=== PATIENT | male | born 1965 | race Caucasian/White ===

== ENCOUNTER 2021-05-27 10:24 | Inpatient (IN) | payer BC, SELFPAY ==
[~2021-05-27] VITALS: Ht 188 cm; Wt 119.7 kg
[2021-05-27 10:30] VITALS: BP 122/67
--- NOTE | 2021-05-27 11:03 | NUR ---
PT W/C ASSISTED TO BED 2
[2021-05-27] MEDS ORDERED: NACL 0.9% 1,000 ML IV ONE (11:05)
--- NOTE | 2021-05-27 11:05 | NUR ---
55 Y/O MALE BIB SELF WITH C/O CHILLS, BODY ACHES AND DIARRHEA SINCE LAST TUESDAY. PATIENT STATES HE WAS SEEN AT URGENT CARE YESTERDAY FOR SAME SYMPTOMS, WAS COVID TESTED BUT HAS NOT RECEIVED RESULTS. DENIES FEVER, CP, SOB. PT STATES 7/10 PAIN. WITH NAUSEA, VOMITING, ABD PAIN RADIATING LOWER BACK. MEDHX: HTN ALLERGIES: DENIES
--- NOTE | 2021-05-27 11:11 | NUR ---
PER ERMD 12 LEAD WAS DONE ON PT AND CAME BACK NSR AT 85 HR.
--- NOTE | 2021-05-27 11:12 | NUR ---
LAB AT BEDSIDE
--- NOTE | 2021-05-27 11:25 | NUR ---
XRAY AT BEDSIDE
--- NOTE | 2021-05-27 11:25 | NUR ---
SWABS COLLECTED AND HANDED TO SANDRA KIMBLE
[2021-05-27 11:35] LABS: BASOPHILS % (AUTO) 0.2 % (0.0-2.0); HEMATOCRIT 39.2 % (36-52); HEMOGLOBIN 13.4 g/dL (12.0-18.0); LYMPHOCYTES # (AUTO) 0.7 K/uL (2.0-11.5); LYMPHOCYTES % (AUTO) 12.1 % (20.5-51.1); MEAN CORPUSCULAR HEMOGLOBIN 30 pg (27-31); MEAN CORPUSCULAR HGB CONC 34 g/dL (33-37); MEAN CORPUSCULAR VOLUME 88.9 fL (80-94); MONOCYTES # (AUTO) 0.2 K/uL (0.8-1.0); MONOCYTES % (AUTO) 2.9 % (1.7-9.3); NEUTROPHILS % (AUTO) 84.8 % (42.2-75.2); PLATELET COUNT (AUTO) 180 K/uL (140-450); RED BLOOD CELL COUNT(AUTO) 4.41 MIL/uL (4.20-6.10); RED CELL DISTRIBUTION WIDTH 13.9 % (11.6-13.7); WHITE BLOOD COUNT (AUTO) 5.9 K/uL (4.8-10.8)
[2021-05-27 11:50] LABS: C-REACTIVE PROTEIN QUANT 11.7 mg/dL (0.0-0.9)
[2021-05-27 11:52] LABS: ALBUMIN 3.8 g/dL (3.4-5.0); ANION GAP 16.1 (8-16); CARBON DIOXIDE 23.6 mmol/L (21-32); CREATININE 1.8 mg/dL (0.6-1.3); POTASSIUM 3.7 mmol/L (3.5-5.1); TOTAL BILIRUBIN 0.6 mg/dL (0.0-1.0)
[2021-05-27 11:53] LABS: PROTHROMBIN TIME 9.6 secs (10.8-13.4)
[2021-05-27 12:01] LABS: RSV NEGATIVE (NEGATIVE)
--- NOTE | 2021-05-27 12:06 | NUR ---
PT TAKEN TO CT SCAN VIA AGUILAR
--- NOTE | 2021-05-27 12:18 | NUR ---
PT RETURNED FROM CT SCAN
[2021-05-27 12:19] LABS: CKMB RELATIVE INDEX 0.4 (0.0-2.5); CREATINE KINASE MB 1.4 ng/mL (0-3.6)
[2021-05-27 12:33] LABS: APPEARANCE,URINE CLEAR (CLEAR); BILIRUBIN,URINE NEGATIVE (NEGATIVE); BLOOD, URINE NEGATIVE (NEGATIVE); COLOR,URINE AMBER (YELLOW); LEUKOCYTE ESTERASE ,URINE NEGATIVE (NEGATIVE); NITRITE, URINE NEGATIVE (NEGATIVE); UGLUCOSE NEGATIVE (NEGATIVE)
[2021-05-27] MEDS ORDERED: LISI2.5T12 PO (12:38)
[2021-05-27] MEDS ORDERED: HYDR12.51 PO (12:38)
[2021-05-27] MEDS ORDERED: CELE100C PO (12:38)
[2021-05-27] MEDS ORDERED: OMEP20TC10 PO (12:38)
[2021-05-27] MEDS ORDERED: TURM500C7 PO (12:38)
[2021-05-27] MEDS ORDERED: GARL1TAB PO (12:38)
[2021-05-27] MEDS ORDERED: DEXAMETHASONE 10 MG/ML VIAL IVP ONE (12:55)
[2021-05-27] MEDS ORDERED: AZITHROMYCIN 500 MG in DEXTROSE 5% 250 ML IV ONE (12:55)
[2021-05-27] MEDS ORDERED: AZITHROMYCIN 500 MG INJ VIAL IV ONE (13:00)
[2021-05-27] MEDS ORDERED: cefTRIAXone 1,000 MG VIAL ONE (13:00)
--- NOTE | 2021-05-27 13:23 | NUR ---
RT AT BEDSIDE OBTAINING ABG
[2021-05-27] MEDS ORDERED: POTASSIUM CHLORIDE 10 MEQ TABER PO PRN (14:25)
[2021-05-27] MEDS ORDERED: ONDANSETRON 4 MG/2 ML VIAL IVP PRN (14:25)
[2021-05-27] MEDS ORDERED: LORazepam 2 MG/ML VIAL IM/IVP PRN (14:25)
[2021-05-27] MEDS ORDERED: AZITHROMYCIN 250 MG TAB PO ONE (14:25)
[2021-05-27] MEDS ORDERED: DOCUSATE SODIUM 100 MG GELCAP PO PRN (14:25)
[2021-05-27] MEDS ORDERED: ZOLPIDEM 5 MG TAB PO PRN (14:25)
[2021-05-27] MEDS ORDERED: SODIUM PHOS / POTASSIUM PHOS 1 PKT PDR PO PRN (14:25)
[2021-05-27] MEDS ORDERED: MAG SULF 2000 MG/WATER PREMIX 50 ML IV PRN (14:25)
[2021-05-27] MEDS ORDERED: MORPHINE SULFATE 2 MG/ML SYR IVP PRN (14:25)
[2021-05-27] MEDS ORDERED: ALBUTEROL HFA MDI 90 MCG/ACTUATION 8 GM INH PRN (14:25)
[2021-05-27 14:57] LABS: CHOL/HDL RATIO 2.6 (1-4.5); FREE T4 (FREE THYROXINE) 1.1 ng/dL (0.76-1.46); PHOSPHORUS 1.4 mg/dL (2.5-4.9); THYROID STIMULATING HORMONE 0.69 uIU/mL (0.34-3.74)
--- NOTE | 2021-05-27 15:00 | NUR ---
DR MERIDA AT BEDSIDE EXAMINING PT
[2021-05-27] MEDS: NACL 0.9% 1,000 ML IV SCH (15:25)
--- NOTE | 2021-05-27 16:20 | NUR ---
Patient awake in bed, on 2L Nasal Cannula O2 saturation. 96%. Vital Signs within normal limits. Respirations even and unlabored. Chest rise is symmetrical. Will continue to monitor.
--- NOTE | 2021-05-27 18:15 | NUR ---
PT PROVIDED WITH DINNER TRAY, EATING AT THIS TIME
--- NOTE | 2021-05-27 18:43 | NUR ---
Patient will be admitted to care of DR MERIDA. Admited to TELEMETRY. Will go to room 114A. Belongings list completed. Report to FELTON RITCHIE.
[2021-05-27 18:44] LABS: BARBITURATE, URINE NEGATIVE ng/ml (NEG <=200); BENZODIAZEPINE, URINE NEGATIVE ng/mL (NEG <=200); CANNABINOID, URINE NEGATIVE ng/mL (NEG <=50); COCAINE, URINE NEGATIVE ng/mL (NEG <=300); OPIATE, URINE NEGATIVE ng/mL (NEG <=2000); PHENCYCLIDINE SCREEN,URINE NEGATIVE ng/mL (NEG <=25)
--- NOTE | 2021-05-27 18:55 | NUR ---
RECEIVED PATIENT FROM ER FOR CONTINUITY OF CARE. PATIENT IS BEING ADMITTED FOR COVID PNEUMONIA. PATIENT IS A&O X4. PATIENT IS NOT SHOWING ANY S/S OF DISTRESS. PATIENT IS ON 2L NASAL CANULA. RESPIRATIONS ARE EVEN AND UNLABORED. IV SITE IS A 20G AT THE LEFT AC. IV SITE IS DRY, PATENT AND INTACT. PATIENT ORIENTED TO ROOM. ALL SAFETY PRECAUTIONS IN PLACE.
--- NOTE | 2021-05-27 19:30 | NUR ---
ENDORSED PATIENT TO DRY CELL TESTER RN FOR CONTINUITY OF CARE. PATIENT IS STABLE.
[2021-05-27 20:00] VITALS: BP 110/69
[2021-05-27] MEDS: ZINC SULF 220 MG CAP PO SCH (21:00)
[2021-05-27] MEDS ORDERED: remdesivir COMMUNICATION ORDER 1 EA MISC MC PRN (23:05)
[2021-05-28] MEDS: NACL 0.9% 1,000 ML IV SCH ×3 (00:54→20:32)
--- NOTE | 2021-05-28 01:45 | NUR ---
05/28/21 0059 BLOOD SUGAR ENTRY IN ERROR. UNABLE TO REMOVE AT THIS TIME.
[2021-05-28 07:14] LABS: BASOPHILS % (AUTO) 0.1 % (0.0-2.0); HEMATOCRIT 39.1 % (36-52); HEMOGLOBIN 13.2 g/dL (12.0-18.0); LYMPHOCYTES # (AUTO) 0.7 K/uL (2.0-11.5); LYMPHOCYTES % (AUTO) 10.1 % (20.5-51.1); MEAN CORPUSCULAR HEMOGLOBIN 30 pg (27-31); MEAN CORPUSCULAR HGB CONC 34 g/dL (33-37); MEAN CORPUSCULAR VOLUME 88.2 fL (80-94); MONOCYTES # (AUTO) 0.3 K/uL (0.8-1.0); MONOCYTES % (AUTO) 3.9 % (1.7-9.3); NEUTROPHILS # (AUTO) 5.8 K/uL (1.8-7.7); NEUTROPHILS % (AUTO) 85.9 % (42.2-75.2); PLATELET COUNT (AUTO) 185 K/uL (140-450); RED BLOOD CELL COUNT(AUTO) 4.43 MIL/uL (4.20-6.10); WHITE BLOOD COUNT (AUTO) 6.7 K/uL (4.8-10.8)
[2021-05-28 07:20] LABS: ALBUMIN 3.4 g/dL (3.4-5.0); ANION GAP 15.7 (8-16); CARBON DIOXIDE 26.1 mmol/L (21-32); CREATININE 1.5 mg/dL (0.6-1.3); MAGNESIUM 2.2 mg/dL (1.8-2.4); POTASSIUM 4.8 mmol/L (3.5-5.1); TOTAL BILIRUBIN 0.5 mg/dL (0.0-1.0)
--- NOTE | 2021-05-28 07:30 | NUR ---
RECEIVED PATIENT FROM POWER HOUSE CONTROL ROOM OPERATOR FOR CONTINUITY OF CARE. PATIENT IS A&O X4, ABLE TO MAKE NEEDS KNOWN. PATIENT IS NOT SHOWING ANY S/S OF DISTRESS. PATIENT IS ON 2L NASAL CANULA. RESPIRATIONS ARE EVEN AND UNLABORED. IV SITE IS A 20G AT THE LEFT AC. IV SITE IS DRY, PATENT AND INTACT. PATIENT ORIENTED TO ROOM. PLAN OF CARE DISCUSSED. ALL SAFETY PRECAUTIONS IN PLACE. WILL CONTINUE TO MONITOR.
[2021-05-28 08:00] VITALS: BP 126/84
[2021-05-28] MEDS ORDERED: remdesivir CLINICAL MONITORING 1 EA MISC MC PRN (08:40)
--- NOTE | 2021-05-28 09:20 | NUR ---
PATIENT HAS BEEN SCREENED AND CATEGORIZED HIGH NUTRITION RISK. PATIENT WILL BE SEEN WITHIN 1-2 DAYS OF ADMISSION. 05/28/21-05/29/[address]
[2021-05-28] MEDS: VITAMIN D 400 IU TAB PO SCH (09:34)
[2021-05-28] MEDS: hydroCHLOROthiazide 25 MG TAB PO SCH (09:34)
[2021-05-28] MEDS: ZINC SULF 220 MG CAP PO SCH ×2 (09:34→20:36)
[2021-05-28] MEDS: lisinopriL 20 MG TAB PO SCH (09:35)
[2021-05-28] MEDS: PANTOPRAZOLE 40 MG TABEC PO SCH (09:35)
[2021-05-28] MEDS: ASCORBIC ACID 500 MG TAB PO SCH (09:35)
[2021-05-28] MEDS: AZITHROMYCIN 250 MG TAB PO SCH (09:35)
--- NOTE | 2021-05-28 09:40 | NUR ---
ALL SCHEDULED MEDS GIVEN. PT IS STABLE. NO DISTRESS NOTED. WILL CONTINUE TO MONITOR.
[2021-05-28] MEDS: ENOXAPARIN 40 MG/0.4 ML SYR SUBQ SCH (09:44)
[2021-05-28] MEDS ORDERED: REMDESIVIR. 200 MG in NACL 0.9% 100 ML IV SCH (10:00)
[2021-05-28] MEDS: ACETAMINOPHEN 325 MG TAB PO PRN (10:59)
--- NOTE | 2021-05-28 10:59 | NUR ---
PT COMPLAINED OF VELAZQUEZ 3. ADMINISTERED PRN PAIN MEDICATIONS PER MD ORDERED.
[2021-05-28 12:00] VITALS: BP 107/59
--- NOTE | 2021-05-28 12:10 | NUR ---
CHECKED ON PATIENT. PT IS STABLE. NO RESPIRATORY DISTRESS NOTED. WILL CONTINUE TO MONITOR.
--- NOTE | 2021-05-28 12:52 | NUR ---
DC PLANNIN YRS OLD MALE PATIENT WAS ADMITTED FROM HOME WITH A DX OF COVID PNEUMONIA. PATIENT HAS A HX OF HTN, AND GERD CXR SHOWED MULTIFOCAL PNEUMONIA. CT CHEST SHOWED NO PE , SUSPECTED COVID-19. RAPID COVID TEST POSITIVE. ON O2 2L/NC SATING 90%. ADMINISTERED IVF IV ABX AZITHROMYCIN AND ROCEPHIN . PCR, URINE AND BLOOD CULTURE PENDING. CONSULTED WITH PULMO, ID AND NEPHRO. DC PLAN TO GO HOME WHEN STABLE CM TO FOLLOW Addendum: 06/02/21 at 1503 by Samantha Boykin RN DC PLANNING: STILL ON HF 30L/NC FIO2 90% COMPLETED THE REMDESIVER , PLASMA 1 BAG TRANSFUSED ID, AND TIMMY FOLLOWING CM TO FOLLOW. Addendum: 06/04/21 at 1416 by Samantha Boykin RN DC PLANNING: PT IS ON HF OXYGEN 30L/NC SATING 93% FIO2 60% , ENCOURAGED PRONING, CONTINUED IV ABX LEVAQUIN , COMPLETED REMDESEVIR , TRANSFERRED TO ICU ID AND PULMO FOLLOWING. CM TO FOLLOW Addendum: 06/08/21 at 1100 by Samantha Boykin RN DC PLANNING: PATIENT IS ON 4L/NC SATING 95% HAS ORDER HOME O2. FAXED TO [facility] CM TO FOLLOW Addendum: 06/08/21 at 1600 by Samantha Boykin RN DC PLANNING: RECEIVED A CALL FROM [facility] WITH [facility] WILL DELIVER THE HOME O2 BETWEEN 5- 9PM. NOTIFIED DAMIAN RITCHIE. CM TO FOLLOW Addendum: 06/08/21 at 1621 by Samantha Boykin RN DC PLANNING: SPOKE WITH PT'S WILTON WHO LIVES IN [facility] , I NOTIFIED HER THAT THE HOME O2 WILL BE HER BETWEEN 5-9PM. SHE STATED SHE IS UNABLE TO COME TONIGHT BUT SHE WILL BE HERE TOMORROW 06/09/21. DC PLAN TO BE DISCHARGED ON 06/09/21. CM TO FOLLOW
--- NOTE | 2021-05-28 14:24 | NUR ---
05/28/21 RD INITIAL ASSESSMENT COMPLETED PLEASE REFER TO NUTRITION ASSESSMENT UNDER CARE ACTIVITY FOR ESTIMATED NUTRITIONAL NEEDS. 1. RECOMMEND BLAND CARDIAC DIET TOLERATED 3. RD TO FOLLOW-UP 2-3 DAYS, HIGH RISK REVIEWED BY FELTON BINGHAM RD Addendum: 05/28/21 at [address] 05/28/21 RD INITIAL ASSESSMENT COMPLETED PLEASE REFER TO NUTRITION ASSESSMENT UNDER CARE ACTIVITY FOR ESTIMATED NUTRITIONAL NEEDS. 1. RECOMMEND BLAND CARDIAC DIET TOLERATED 3. RD TO FOLLOW-UP 3-5 DAYS, MODERATE RISK REVIEWED BY FELTON BINGHAM RD Addendum: 05/28/21 at [address] 05/28/21 RD INITIAL ASSESSMENT COMPLETED PLEASE REFER TO NUTRITION ASSESSMENT UNDER CARE ACTIVITY FOR ESTIMATED NUTRITIONAL NEEDS. 1. RECOMMEND BLAND CARDIAC DIET TOLERATED 3. RD TO FOLLOW-UP 3-5 DAYS, MODERATE RISK REVIEWED BY FELTON BINGHAM RD
--- NOTE | 2021-05-28 14:30 | NUR ---
CHECKED ON PATIENT. PATIENT IS STABLE. NO DISTRESS NOTED. WILL CONTINUE TO MONITOR.
[2021-05-28 16:00] VITALS: BP_SYST 107; BP_SYST 108; BP_DIAS 59; BP_DIAS 67
--- NOTE | 2021-05-28 16:20 | NUR ---
CHECKED ON PATIENT. PATIENT IS STABLE. NO DISTRESS NOTED. DENIES PAIN. WILL CONTINUE TO MONITOR.
--- NOTE | 2021-05-28 19:30 | NUR ---
ENDORSED TO PIANO ACCOMPANIST NURSE FOR CONTINUITY OF CARE. PT IS STABLE.
--- NOTE | 2021-05-28 19:31 | NUR ---
RECEIVED BEDSIDE REPORT FROM DAY RN. PATIENT IS A&O X4, ABLE TO MAKE NEEDS KNOWN. RESPIRATIONS ARE EQUAL AND UNLABORED ON 2L NASAL CANULA. IV SITE IS A 20G AT THE RIGHT AC. IV SITE IS DRY, PATENT AND INTACT IVF INFUSING PER ORDERS. SKIN IS WARM, DRY AND INTACT. PATIENT ORIENTED TO ROOM. PLAN OF CARE DISCUSSED. ALL SAFETY PRECAUTIONS IN PLACE. WILL CONTINUE TO MONITOR.
[2021-05-28 20:00] VITALS: BP 121/68
--- NOTE | 2021-05-28 20:23 | NUR ---
PT WAS WAKEN UP PT SPO2 WAS 84% AND O2 WAS TITRATED TO 4LNC W/ CURRENT SPO2 88% PT DENIES SOB AT THIS TIME W/ NO DISTRESS NOTED WILL CONTINUE TO MONITOR
--- NOTE | 2021-05-28 20:36 | NUR ---
VSS. MAGALI MEDICATION GIVEN PER ORDERS. MED EDUCATION GIVEN. ALL NEEDS MET. WILL CONTINUE TO MONITOR.
--- NOTE | 2021-05-28 21:48 | NUR ---
PATIENT AMBULATED TO RESTROOM BACK IN BED TOLERATED WELL. ALL NEEDS MET. WILL CONTINUE TO MONITOR.
[2021-05-29] VITALS: BP 123/79
--- NOTE | 2021-05-29 | NUR ---
VITAL SIGNS ARE WITHIN NORMAL LIMITS. ALL SAFETY MEASURES ARE IN PLACE. CALL LIGHT IS WITHIN REACH
--- NOTE | 2021-05-29 02:07 | NUR ---
ROUNDS MADE. PT OBSERVED RESTING IN BED APPEARS TO BE ASLEEP. CHEST RISE AND FALL NOTED. NO S/SX OF DISTRESS. WILL CONTINUE TO MONITOR.
[2021-05-29] MEDS: ACETAMINOPHEN 325 MG TAB PO PRN ×3 (03:20→18:55)
[2021-05-29 04:00] VITALS: BP 121/69
[2021-05-29] MEDS: NACL 0.9% 1,000 ML IV SCH ×2 (04:08→16:00)
--- NOTE | 2021-05-29 04:20 | NUR ---
VITAL SIGNS ARE WITHIN NORMAL LIMITS. ALL SAFETY MEASURES ARE IN PLACE. WILL CONTINUE TO MONITOR.
[2021-05-29 06:30] LABS: BASOPHILS % (AUTO) 0.1 % (0.0-2.0); HEMATOCRIT 38.9 % (36-52); HEMOGLOBIN 13.2 g/dL (12.0-18.0); LYMPHOCYTES # (AUTO) 0.9 K/uL (2.0-11.5); LYMPHOCYTES % (AUTO) 8.9 % (20.5-51.1); MEAN CORPUSCULAR HEMOGLOBIN 30 pg (27-31); MEAN CORPUSCULAR HGB CONC 34 g/dL (33-37); MEAN CORPUSCULAR VOLUME 89.2 fL (80-94); MONOCYTES # (AUTO) 0.4 K/uL (0.8-1.0); MONOCYTES % (AUTO) 4.2 % (1.7-9.3); NEUTROPHILS # (AUTO) 8.3 K/uL (1.8-7.7); NEUTROPHILS % (AUTO) 86.8 % (42.2-75.2); PLATELET COUNT (AUTO) 217 K/uL (140-450); RED BLOOD CELL COUNT(AUTO) 4.36 MIL/uL (4.20-6.10); RED CELL DISTRIBUTION WIDTH 13.9 % (11.6-13.7); WHITE BLOOD COUNT (AUTO) 9.6 K/uL (4.8-10.8)
[2021-05-29 06:59] LABS: ALBUMIN 3.2 g/dL (3.4-5.0); ANION GAP 14.1 (8-16); CARBON DIOXIDE 26.3 mmol/L (21-32); CREATININE 1.4 mg/dL (0.6-1.3); POTASSIUM 4.4 mmol/L (3.5-5.1); TOTAL BILIRUBIN 0.5 mg/dL (0.0-1.0)
--- NOTE | 2021-05-29 07:25 | NUR ---
GAVE BEDSIDE REPORT FROM DAY RN. PT ENDORSED IN STABLE CONDITION.
--- NOTE | 2021-05-29 07:30 | NUR ---
RECEIVED REPORT FROM ETCHER PHOTOENGRAVING NURSE FOR CONTINUITY OF CARE. PT IS AOX4, ABLE TO MAKE NEEDS KNOWN. WITH NO DEVELOPMENTAL DELAY. ABLE TO FOLLOW COMMANDS, NO C/O PAIN, NO SOB ON ROOM AIR. AMBULATORY WITH STANDBY ASSISTANCE, B/B CONTINENT. WITH IV ON RAC 20G RUNNING NS AT 100CC/HR. PLAN OF CARE DISCUSSED. SAFETY PRECAUTIONS IN PLACE. DROPLET COVID ISOLATION. CALL LIGHT WITHIN REACH. PT IS STABLE. WILL CONTINUE TO MONITOR
[2021-05-29 08:00] VITALS: BP 108/65
--- NOTE | 2021-05-29 09:00 | NUR ---
ADMINISTERED AM MEDS PER MD ORDER. PT IS STABLE. WILL CONTINUE YO MONITOR.
[2021-05-29] MEDS ORDERED: guaiFENesin DM 200/20 MG-10 ML 10 ML UDC PO PRN (09:05)
[2021-05-29] MEDS: lisinopriL 20 MG TAB PO SCH (09:10)
[2021-05-29] MEDS: ZINC SULF 220 MG CAP PO SCH ×2 (09:10→22:22)
[2021-05-29] MEDS: AZITHROMYCIN 250 MG TAB PO SCH (09:10)
[2021-05-29] MEDS: PANTOPRAZOLE 40 MG TABEC PO SCH (09:10)
[2021-05-29] MEDS: ENOXAPARIN 40 MG/0.4 ML SYR SUBQ SCH (09:10)
[2021-05-29] MEDS: hydroCHLOROthiazide 25 MG TAB PO SCH (09:10)
[2021-05-29] MEDS: VITAMIN D 400 IU TAB PO SCH (09:10)
[2021-05-29] MEDS: ASCORBIC ACID 500 MG TAB PO SCH (09:30)
--- NOTE | 2021-05-29 09:30 | NUR ---
PT COMPLAINED OF A HEADACHE WITH BODY ACHES. PAIN OF 3/10 OVERALL. ADMINISTERED TYLENOL PRN PER MD ORDER FOR PAIN. WILL REASSESS IN 1 HOUR. PT IS STABLE. WILL CONTINUE TO MONITOR.
--- NOTE | 2021-05-29 10:30 | NUR ---
REASSESSED PAIN. PT IS NOW RESTING AND DENIES PAIN. MEDICATION EFFECTIVE. PATIENT IS STABLE. WILL CONTINUE TO MONITOR.
[2021-05-29] MEDS: REMDESIVIR. 100 MG in NACL 0.9% 100 ML IV SCH (10:58)
[2021-05-29 12:00] VITALS: BP 113/73
--- NOTE | 2021-05-29 12:45 | NUR ---
CHECKED ON PATIENT. PT IS STABLE. NO DISTRESS NOTED. WILL CONTINUE TO MONITOR.
--- NOTE | 2021-05-29 15:30 | NUR ---
CHECKED ON PATIENT. PT IS STABLE. NO DISTRESS NOTED. WILL CONTINUE TO MONITOR.
[2021-05-29 16:00] VITALS: BP 119/76
--- NOTE | 2021-05-29 17:39 | NUR ---
DC PLANNING PATIENT IS A 55 YEAR OLD MALE ADMITTED ON 05/27/21 BY THE ED, DUE TO CHILLS, FEVER AND SHORTEST OF BREATH. SW MET WITH PATIENT AT BEDSIDE TO DISCUSS AND GATHER PATIENT'S COLLATERAL INFORMATION. PATIENT REPORTED LIVING IN MORROW HOWEVER; WORKS HERE IN [place] AND [facility]. PER PATIENT HE HAS HIS HIS FAMILY SUPPORT REPORTED HAVING NO ISSUES GETTING OR TAKING HIS MEDICATIONS PRESCRIBED BY HIS MD. AND REPORTED BEEN INDEPENDENT AND NOT HAVING ANY DME NEEDS. PT HAS NO ADVANCE DIRECTIVES AND DECLINED INFORMATION PACKET PROVIDED BY THESE SUSTAINABILITY ENGINEER AT THE TIME OF VISIT. PATIENT STATED THAT HE WILL BE DRIVING HOME TO MORROW IN HIS OWN VEHICLE WHEN IS HIS TIME OF DISCHARGE. SW WILL FOLLOW UP NEEDED.
--- NOTE | 2021-05-29 18:55 | NUR ---
PATIENT HAS PAIN 3/10. ADMINISTERED PRN PAIN MEDICATION PER MD ORDER, WILL LET NIGHT NURSE TO REASSESS PAIN IN 1 HOUR.
--- NOTE | 2021-05-29 19:30 | NUR ---
ENDORSED TO GOLF COURSE SUPERINTENDENT NURSE FOR CONTINUITY OF CARE. PT IS STABLE.
--- NOTE | 2021-05-29 19:31 | NUR ---
RECEIVED REPORT FROM AM NURSE. PATIENT IS RESTING IN BED. O2 AT 3LPM TOLERATING WELL. NO SOB NOTED. RESPIRATION EVEN UNLABORED. ALL SAFETY PRECAUTIONS ARE IN PLACE. CALL LIGHT WITHIN REACH. WILL CONTINUE TO MONITOR.
[2021-05-29 20:00] VITALS: BP 116/76
--- NOTE | 2021-05-29 22:20 | NUR ---
DUE MEDS GIVEN PER MD ORDERED.
[2021-05-30] VITALS: BP 120/78
--- NOTE | 2021-05-30 02:00 | NUR ---
PATIENT IS SLEEPING. NO S/S OF RESPIRATORY DISTRESS. CALL LIGHT WITHIN REACH.
[2021-05-30] MEDS: ACETAMINOPHEN 325 MG TAB PO PRN (02:19)
[2021-05-30] MEDS: NACL 0.9% 1,000 ML IV SCH ×3 (02:25→23:12)
[2021-05-30 04:00] VITALS: BP 118/74
[2021-05-30 07:17] LABS: HEMATOCRIT 41.1 % (36-52); HEMOGLOBIN 13.8 g/dL (12.0-18.0); LYMPHOCYTES # (AUTO) 0.8 K/uL (2.0-11.5); LYMPHOCYTES % (AUTO) 9.7 % (20.5-51.1); MEAN CORPUSCULAR HEMOGLOBIN 30 pg (27-31); MEAN CORPUSCULAR HGB CONC 34 g/dL (33-37); MEAN CORPUSCULAR VOLUME 89.4 fL (80-94); MONOCYTES # (AUTO) 0.5 K/uL (0.8-1.0); MONOCYTES % (AUTO) 6.7 % (1.7-9.3); NEUTROPHILS # (AUTO) 6.8 K/uL (1.8-7.7); NEUTROPHILS % (AUTO) 83.6 % (42.2-75.2); PLATELET COUNT (AUTO) 251 K/uL (140-450); RED CELL DISTRIBUTION WIDTH 14.2 % (11.6-13.7); WHITE BLOOD COUNT (AUTO) 8.2 K/uL (4.8-10.8)
[2021-05-30 07:20] LABS: ALBUMIN 3.2 g/dL (3.4-5.0); BILIRUBIN,DIRECT 0.2 mg/dL (0.0-0.3); TOTAL BILIRUBIN 0.6 mg/dL (0.0-1.0)
[2021-05-30 07:21] LABS: ALBUMIN 3.2 g/dL (3.4-5.0); ANION GAP 15.4 (8-16); CARBON DIOXIDE 27.5 mmol/L (21-32); CREATININE 1.4 mg/dL (0.6-1.3); MAGNESIUM 2.2 mg/dL (1.8-2.4); POTASSIUM 4.9 mmol/L (3.5-5.1); TOTAL BILIRUBIN 0.6 mg/dL (0.0-1.0)
--- NOTE | 2021-05-30 07:30 | NUR ---
RECEIVED REPORT FROM CASHIER COURTESY BOOTH NURSE FOR CONTINUITY OF CARE. PT IS AOX4, ABLE TO MAKE NEEDS KNOWN. WITH NO DEVELOPMENTAL DELAY. ABLE TO FOLLOW COMMANDS, NO C/O PAIN, NO SOB ON 12L NC SATURATING 91% O2. AMBULATORY WITH STANDBY ASSISTANCE, B/B CONTINENT. WITH IV ON RAC 20G RUNNING NS AT 100CC/HR. PLAN OF CARE DISCUSSED. SAFETY PRECAUTIONS IN PLACE. DROPLET COVID ISOLATION. CALL LIGHT WITHIN REACH. PT IS STABLE. WILL CONTINUE TO MONITOR
--- NOTE | 2021-05-30 07:37 | NUR ---
ENDORSED TO AM NURSE FOR CONTINUITY OF CARE. PATIENT IS IN STABLE CONDITION.
--- NOTE | 2021-05-30 07:38 | NUR ---
RECEIVED REPORT FROM FLORICULTURIST NURSE FOR CONTINUITY OF CARE. PT IS AOX4, ABLE TO MAKE NEEDS KNOWN. WITH NO DEVELOPMENTAL DELAY. ABLE TO FOLLOW COMMANDS, NO C/O PAIN, NO SOB ON 12L NC SATURATING 91% O2. AMBULATORY WITH STANDBY ASSISTANCE, B/B CONTINENT. WITH IV ON RAC 20G RUNNING NS AT 100CC/HR. PLAN OF CARE DISCUSSED. SAFETY PRECAUTIONS IN PLACE. DROPLET COVID ISOLATION. CALL LIGHT WITHIN REACH. PT IS STABLE. WILL CONTINUE TO MONITOR
[2021-05-30 08:00] VITALS: BP 111/73
[2021-05-30] MEDS: ASCORBIC ACID 500 MG TAB PO SCH (08:52)
[2021-05-30] MEDS: VITAMIN D 400 IU TAB PO SCH (08:52)
[2021-05-30] MEDS: ZINC SULF 220 MG CAP PO SCH ×2 (08:52→20:43)
[2021-05-30] MEDS: PANTOPRAZOLE 40 MG TABEC PO SCH (08:52)
[2021-05-30] MEDS: AZITHROMYCIN 250 MG TAB PO SCH (08:53)
[2021-05-30] MEDS: hydroCHLOROthiazide 25 MG TAB PO SCH (08:53)
[2021-05-30] MEDS: lisinopriL 20 MG TAB PO SCH (08:53)
[2021-05-30] MEDS: ENOXAPARIN 40 MG/0.4 ML SYR SUBQ SCH (08:54)
--- NOTE | 2021-05-30 09:30 | NUR ---
ALL SCHEDULED MEDS GIVEN. PT IS STABLE. NO DISTRESS NOTED. DENIES PAIN. WILL CONTINUE TO MONITOR.
[2021-05-30] MEDS: REMDESIVIR. 100 MG in NACL 0.9% 100 ML IV SCH (09:54)
[2021-05-30 12:00] VITALS: BP 133/86
--- NOTE | 2021-05-30 12:30 | NUR ---
CHECKED ON PATIENT. PATIENT IS STABLE. NO DISTRESS NOTED. WILL CONTINUE TO MONITOR.
--- NOTE | 2021-05-30 13:45 | NUR ---
DR. ZIMMER AT PATIENT'S BEDSIDE DISCUSSING PLAN OF CARE.
--- NOTE | 2021-05-30 15:45 | NUR ---
CHECKED ON PATIENT. PT IS STABLE. NO DISTRESS NOTED. WILL CONTINUE TO MONITOR.
[2021-05-30 16:00] VITALS: BP 121/83
--- NOTE | 2021-05-30 17:20 | NUR ---
CHECKED ON PATIENT. PT IS STABLE. NO DISTRESS NOTED. WILL CONTINUE TO MONITOR.
--- NOTE | 2021-05-30 19:00 | NUR ---
PATIENT RECEIVED IN BED, AOX4, ABLE TO MAKE NEEDS KNOWN. RN DISCUSSED WITH PATIENT MEDICAL PLAN OF CARE. PT ABLE TO FOLLOW COMMANDS, NO C/O PAIN, NO SOB ON 12L NC SATURATING 91% O2. PT AMBULATORY WITH STANDBY ASSISTANCE, B/B CONTINENT. IV ON RAC 20G RUNNING NS AT 100CC/HR. PLAN OF CARE DISCUSSED. SAFETY PRECAUTIONS IN PLACE. DROPLET COVID ISOLATION CONTINUED. CALL LIGHT WITHIN PLACED WITHIN REACH. PT IS STABLE. VITAL SIGNS WITHIN PARAMETER. RN WILL CONTINUE TO MONITOR. VITAL SIGNS STABLE. NO ACUTE DISTRESS NOTED.
--- NOTE | 2021-05-30 19:25 | NUR ---
ENDORSED TO LAUNDRY AGENT NURSE FOR CONTINUITY OF CARE. PT IS STABLE
[2021-05-30 20:00] VITALS: BP 126/80
[2021-05-31] VITALS: BP 122/84
[2021-05-31 03:53] VITALS: BP 118/82
[2021-05-31 07:08] LABS: BASOPHILS % (AUTO) 0.1 % (0.0-2.0); HEMATOCRIT 41.3 % (36-52); LYMPHOCYTES % (AUTO) 7.6 % (20.5-51.1); MEAN CORPUSCULAR HEMOGLOBIN 30 pg (27-31); MEAN CORPUSCULAR HGB CONC 34 g/dL (33-37); MEAN CORPUSCULAR VOLUME 88.6 fL (80-94); MONOCYTES # (AUTO) 0.9 K/uL (0.8-1.0); MONOCYTES % (AUTO) 6.5 % (1.7-9.3); NEUTROPHILS # (AUTO) 11.3 K/uL (1.8-7.7); NEUTROPHILS % (AUTO) 85.8 % (42.2-75.2); PLATELET COUNT (AUTO) 310 K/uL (140-450); RED BLOOD CELL COUNT(AUTO) 4.66 MIL/uL (4.20-6.10); RED CELL DISTRIBUTION WIDTH 13.8 % (11.6-13.7); WHITE BLOOD COUNT (AUTO) 13.2 K/uL (4.8-10.8)
[2021-05-31 07:34] LABS: ALBUMIN 3.1 g/dL (3.4-5.0); ANION GAP 14.9 (8-16); CARBON DIOXIDE 25.2 mmol/L (21-32); CREATININE 1.2 mg/dL (0.6-1.3); MAGNESIUM 1.9 mg/dL (1.8-2.4); POTASSIUM 4.1 mmol/L (3.5-5.1); TOTAL BILIRUBIN 0.7 mg/dL (0.0-1.0)
--- NOTE | 2021-05-31 07:36 | NUR ---
RECEIVED BEDSIDE REPORT FROM PACK WORKER NURSE FOR CONTINUITY OF CARE. PT IS STABLE. NO RESPIRATORY DISTRESS NOTED AND STILL ON 12L NC. IV INTACT AND PATENT, INFUSING FLUIDS WELL. DENIES PAIN AT THE MOMENT. PLAN OF CARE DISCUSSED. SAFETY PRECAUTIONS IN PLACE. CALL LIGHT WITHIN REACH. WILL CONTINUE TO MONITOR.
[2021-05-31 07:37] LABS: ALBUMIN 3.1 g/dL (3.4-5.0); BILIRUBIN,DIRECT 0.2 mg/dL (0.0-0.3); TOTAL BILIRUBIN 0.7 mg/dL (0.0-1.0)
[2021-05-31 08:00] VITALS: BP 119/80
[2021-05-31] MEDS: NACL 0.9% 1,000 ML IV SCH ×2 (08:38→17:42)
[2021-05-31] MEDS: hydroCHLOROthiazide 25 MG TAB PO SCH (09:12)
[2021-05-31] MEDS: AZITHROMYCIN 250 MG TAB PO SCH (09:12)
[2021-05-31] MEDS: VITAMIN D 400 IU TAB PO SCH (09:12)
[2021-05-31] MEDS: lisinopriL 20 MG TAB PO SCH (09:12)
[2021-05-31] MEDS: ASCORBIC ACID 500 MG TAB PO SCH (09:12)
[2021-05-31] MEDS: ENOXAPARIN 40 MG/0.4 ML SYR SUBQ SCH (09:12)
[2021-05-31] MEDS: ZINC SULF 220 MG CAP PO SCH ×2 (09:12→20:36)
[2021-05-31] MEDS: PANTOPRAZOLE 40 MG TABEC PO SCH (09:12)
[2021-05-31] MEDS: ACETAMINOPHEN 325 MG TAB PO PRN ×2 (09:14→20:36)
--- NOTE | 2021-05-31 09:50 | NUR ---
ALL SCHEDULED MEDS GIVEN. PT IS STABLE. NO DISTRESS NOTED. WILL CONTINUE TO MONITOR.
[2021-05-31] MEDS: REMDESIVIR. 100 MG in NACL 0.9% 100 ML IV SCH (10:17)
[2021-05-31 12:00] VITALS: BP 128/86
--- NOTE | 2021-05-31 12:10 | NUR ---
CHECKED ON PATIENT. PATIENT NEEDED ASSISTANCE IN GOING TO THE BATHROOM. PT WAS STABLE. NO DISTRESS NOTED. WILL CONTINUE TO MONITOR.
--- NOTE | 2021-05-31 14:40 | NUR ---
CHECKED ON PATIENT. PT IS ASLEEP. NOTED CHEST RISE AND FALL. O2 SATURATION IS AT 92% NO DISTRESS NOTED. WILL CONTINUE TO MONITOR
[2021-05-31 16:00] VITALS: BP 115/80
--- NOTE | 2021-05-31 16:30 | NUR ---
RT AT PATIENT'S BEDSIDE.
--- NOTE | 2021-05-31 16:45 | NUR ---
PATIENT TITRATED DOWN TO 10L NC. PATIENT TOLERATING IT AND O2 SATURATION AT 92%
--- NOTE | 2021-05-31 19:21 | NUR ---
ENDORSED TO FORESTRY WORKERS NURSE FOR CONTINUITY OF CARE. PT IS STABLE.
--- NOTE | 2021-05-31 19:22 | NUR ---
PATIENT TITRATED DOWN TO 10L NC. PATIENT TOLERATING IT AND O2 SATURATION AT 92% Addendum: 05/31/21 at 1922 by Jaya Tinsley RN RN WRONG TIMESTAMP*
[2021-05-31 20:00] VITALS: BP 118/86
--- NOTE | 2021-05-31 20:00 | NUR ---
PATIENT WAS RECEIVED ALERT AND COHERENT, C/O DIFFICULTY BREATHING, PATIENT SATURATING AT 80%, RT WAS CALLED IN, ATIVAN 1 MG IV PUSH WAS GIVEN TO CALM DOWN THE PATIENT. BUT DID NOT TOOK EFFECT RIGHT AWAY.
--- NOTE | 2021-05-31 20:40 | NUR ---
2040 LORAZEPAM 2 MG IVP WAS GIVEN TO RELIEVE PATIENT ANXIETY M/B AGITATION. IT WAS HELPFUL AFTER 30 MINUTES FROM ADMINISTRATION.
--- NOTE | 2021-05-31 21:00 | NUR ---
DUE MEDICATION WAS GIVEN BY MOUTH WELL TYLENOL 650 MG PO, HE WAS C/O HEADACHE 01/22. STILL COMPLAINS OF SOB, OXYGEN SUPPORT WAS BUMP UP TO 15 LITERS/MIN AND ASKED THE PATIENT TO BREATH THROUGH HIS NOSE. OXYGENATION LEVEL WENT UP TO 82 A BIT HIGHER THAN IT WAS.
--- NOTE | 2021-05-31 21:11 | NUR ---
CALLED TO BEDSIDE AND PT FOUND W/ SPO2 LOW 80S FIO2 TITRATED TO 15LNC AND WAS PRONED AFTER SOME ENCOURAGEMENT PT WAS HESITANT SPO2 SLOWLY CLIMBING AND WAS 91% UPON MY DEPARTURE FROM PT RM WILL CONTINUE TO MONITOR
--- NOTE | 2021-05-31 21:14 | NUR ---
PT IS ALSO APPEARS ANXIOUS
--- NOTE | 2021-05-31 22:00 | NUR ---
PATIENT WAS ENCOURAGE TO BREATH VIA HIS NOSE WITH OXYGEN ON.
--- NOTE | 2021-05-31 22:41 | NUR ---
PT SLEEPING COMFORTABLY IN L LATERAL DECUB POSITION (L SIDE) W/ CURRENT SPO2 98% ON 15LNC + NO DISTRESS NOTED AT THIS TIME WILL CONTINUE TO MONITOR
[2021-06-01] VITALS: BP 130/84
--- NOTE | 2021-06-01 | NUR ---
PATIENT CALLED C/O OF DESATURATION, ALERT AND COHERENT
--- NOTE | 2021-06-01 01:00 | NUR ---
TELEMONITOR ASKED TO RECONNECT THE PATIENT INTO THE TELEMONITOR,
--- NOTE | 2021-06-01 02:00 | NUR ---
COMPLAINT OF SOB, PATIENT WAS ASKED TO BREATHTO HIS NOSE AND PRONATE, HELPFUL
--- NOTE | 2021-06-01 02:38 | NUR ---
PT CONTINUES TO SLEEP COMFORTABLY IN L LAT POSITION CURRENT SPO2 92% WILL CONTINUE TO MONITOR
[2021-06-01 04:00] VITALS: BP 125/81
--- NOTE | 2021-06-01 04:00 | NUR ---
V/S WNL TELEMONITOR LEADS WERE FIXED AGAIN.
[2021-06-01] MEDS: NACL 0.9% 1,000 ML IV SCH ×2 (04:58→14:25)
--- NOTE | 2021-06-01 05:02 | NUR ---
PT SLEEPING COMFORTABLY IN R LAT POSITION ON 15LNC W/ NO DISTRESS NOTED CURRENT SPO2 97% HR 67 WILL CONTINUE TO MONITOR
[2021-06-01 07:03] LABS: BASOPHILS % (AUTO) 0.1 % (0.0-2.0); EOSINOPHILS % (AUTO) 0.1 % (0.0-4.0); HEMATOCRIT 41.1 % (36-52); HEMOGLOBIN 13.8 g/dL (12.0-18.0); LYMPHOCYTES # (AUTO) 0.9 K/uL (2.0-11.5); LYMPHOCYTES % (AUTO) 6.6 % (20.5-51.1); MEAN CORPUSCULAR HEMOGLOBIN 30 pg (27-31); MEAN CORPUSCULAR HGB CONC 34 g/dL (33-37); MEAN CORPUSCULAR VOLUME 89.9 fL (80-94); MONOCYTES # (AUTO) 0.6 K/uL (0.8-1.0); MONOCYTES % (AUTO) 4.3 % (1.7-9.3); NEUTROPHILS # (AUTO) 11.8 K/uL (1.8-7.7); NEUTROPHILS % (AUTO) 88.9 % (42.2-75.2); PLATELET COUNT (AUTO) 331 K/uL (140-450); RED BLOOD CELL COUNT(AUTO) 4.57 MIL/uL (4.20-6.10); RED CELL DISTRIBUTION WIDTH 14.1 % (11.6-13.7); WHITE BLOOD COUNT (AUTO) 13.3 K/uL (4.8-10.8)
[2021-06-01 07:36] LABS: ALBUMIN 3.1 g/dL (3.4-5.0); ANION GAP 15.6 (8-16); CREATININE 1.3 mg/dL (0.6-1.3); POTASSIUM 4.6 mmol/L (3.5-5.1); TOTAL BILIRUBIN 0.8 mg/dL (0.0-1.0)
[2021-06-01 08:00] VITALS: BP 118/76
--- NOTE | 2021-06-01 08:24 | NUR ---
ALL REPORTS WERE GIVEN TRANSFER OF CARE ENDORSED.
--- NOTE | 2021-06-01 08:25 | NUR ---
NURSE REPORT REPORT OBTAINED FROM NIGHT NURSE SELIN AND THIS NURSE ASSUMED CARE OF PATIENT. VSS. AFEB. NO C/O PAIN OR DISCOMFORT. ON DROPLET PRECAUTIONS FOR COVID.NO C/O PAIN OR DISCOMFORT.
[2021-06-01] MEDS: ACETAMINOPHEN 325 MG TAB PO PRN ×2 (09:30→17:41)
[2021-06-01] MEDS: ZINC SULF 220 MG CAP PO SCH ×2 (09:36→20:50)
[2021-06-01] MEDS: ENOXAPARIN 40 MG/0.4 ML SYR SUBQ SCH (09:36)
[2021-06-01] MEDS: AZITHROMYCIN 250 MG TAB PO SCH (09:36)
[2021-06-01] MEDS: hydroCHLOROthiazide 25 MG TAB PO SCH (09:36)
[2021-06-01] MEDS: PANTOPRAZOLE 40 MG TABEC PO SCH (09:36)
[2021-06-01] MEDS: ASCORBIC ACID 500 MG TAB PO SCH (09:36)
[2021-06-01] MEDS: VITAMIN D 400 IU TAB PO SCH (09:36)
[2021-06-01] MEDS: lisinopriL 20 MG TAB PO SCH (09:36)
[2021-06-01] MEDS: REMDESIVIR. 100 MG in NACL 0.9% 100 ML IV SCH (09:50)
[2021-06-01 12:00] VITALS: BP 115/76
--- NOTE | 2021-06-01 12:00 | NUR ---
NURSE NOTES VSS. AFEB. C/O VELAZQUEZ AT 0930. NO FURTHER C/O PAIN OR DISCOMFORT. ON IVPB ROCEPHIN AND ZITHROMAX AND RESDESIMIR.
[2021-06-01 14:22] LABS: ALBUMIN 3.1 g/dL (3.4-5.0); BILIRUBIN,DIRECT 0.2 mg/dL (0.0-0.3); TOTAL BILIRUBIN 0.8 mg/dL (0.0-1.0)
[2021-06-01 16:00] VITALS: BP 109/69
--- NOTE | 2021-06-01 16:05 | NUR ---
PT DESATURATING TO 84% ON 15 L BUBBLE NASAL CANNULA. NRB PLACED OVER SPO2 INCREASED TO 94%. WILL CONTINUE TO MONITOR.
[2021-06-01] MEDS: LEVOFLOXACIN 750 MG/D5W PREMIX 150 ML IV SCH (16:38)
--- NOTE | 2021-06-01 18:15 | NUR ---
NURSE NOTES VSS. DUFFY. TELE WITH SR. MEDICATED FO VELAZQUEZ WITH ACETAMINOPHEN 650 MG PO AT 1740 WITH RELIEF OF PAIN.
--- NOTE | 2021-06-01 18:35 | NUR ---
NURSE CARE PATIENT STARTED ON FFP FOR CONVALESCENT OF COVID. VSS. AFEB. NO C/O PAIN. IV INFUSING WELL INTO R ARM.
--- NOTE | 2021-06-01 19:15 | NUR ---
NURSE REPORT AND ENDORSEMENT REPORT GIVEN TO NIGHT NURSE LAURYN AND SBAR GIVEN. ALL QUESTIONS ANSWERED.
--- NOTE | 2021-06-01 20:00 | NUR ---
REPORT RECEIVED. PT C/O LEAKING IV SITE - CONFIRMED. FFP COMPLETED AT THIS TIME. ATTEMPTED RESTART ON RFA - NOT SUCCESSFUL. ENDORSED TO SECOND RN AND WILL F/U.
[2021-06-01] MEDS: HYDROcodone/APAP 5/325 MG 1 TAB TAB PO PRN (20:50)
--- NOTE | 2021-06-01 23:16 | NUR ---
PT SLEEPING IN R LAT POSITION ( R SIDE ) ON 15LNC + NRB W/ NO DISTRESS NOTED AT TIS TIME CURRENT SPO2 96% HR 73 WILL CONTINUE TO MONITOR
[2021-06-02] MEDS: NACL 0.9% 1,000 ML IV SCH ×3 (00:25→21:51)
[2021-06-02] MEDS: HYDROcodone/APAP 5/325 MG 1 TAB TAB PO PRN ×2 (02:48→21:53)
--- NOTE | 2021-06-02 02:50 | NUR ---
AT END OF DAY SHIFT PT WAS GIVEN TYLENOL 650MG. AT 2049 PT REQUESTED MORE TYLENOL. IN ORDER TO LIMIT ACETAMINOPHEN INTAKE DURING SHIFT TO A MAX OF 1500MG PT WAS OFFERED NORCO, WHICH HE TOOK. LATER, PT REQUESTED PAIN MEDICATION. MORPHINE AND ZOFRAN PREPPED IN SUITABLE SYRINGES. UPON SHOWING RAC IT WAS OBVIOUS THAT THE SALINE LOCK WAS COMPLETELY DISLODGED FROM THE VEIN. MULTIPLE ATTEMPTS BY MULTIPLE RNS WERE UNSUCCESSFUL. SIX HOUR JARRET FOR NORCO REACHED AND PT GIVEN NORCO INSTEAD.
--- NOTE | 2021-06-02 03:40 | NUR ---
PT DENIES SOB AND RESTING IN R LAT POSITION ON 15LNC (CURAPLEX) + NRB W/ CURRENT SPO2 98% WILL CONTINUE TO MONITOR
--- NOTE | 2021-06-02 07:53 | NUR ---
LOC AWAKE AND ALERT VERBALLY RESPONSIVE TO DUCK OPERATOR VERBAL SKIN TONE PINK GOOD CHEST RISE BREATH SOUNDS DECREASED BILATERAL AIRWAY PATENT; PATIENT STATES "INTERMITTENT ANXIETY" RECEIVED ON SUPPLEMENTAL OXYGEN DEVICES FOLLOWS: NON REBREATHER AT 15 LPM; BUBBLE HUMIDIFIER WITH CURAPLEX NASAL CANNULA SATURATION 91%-92% HR 104 RR 24-28 BPM PATIENT IS A GOOD CANDIDATE FOR HIGH FLOW NASAL CANNULA
[2021-06-02 08:00] VITALS: BP 117/67
--- NOTE | 2021-06-02 08:00 | NUR ---
NURSE REPORT REPORT OBTAINED FROM NIGHT NURSE LAURYN AND THIS NURSE ASSUMED CARE. DR VALDES SENT TEXT ABOUT NEED FOR PICC LINE, BUT DR SOTO IS MEAT AND SEAFOOD MANAGER. TEXT SENT. VSS. AFEB. NO C/O PAIN OR DISCOMFORT.
--- NOTE | 2021-06-02 08:05 | NUR ---
NOTED PLACED ON A VAPOTHERM HIGH FLOW NASAL CANNULA WITH COMPRESSOR ON PLUGGED INTO RED OUTLET TOLERATING WELL WITHOUT COMPLICATIONS NOTED GOOD CHEST RISE AND AERATION THROUGHOUT BILATERAL LUNG BAIN AIRWAY PATENT PROJECT/PRODUCTION MANAGER IMAGING TO MONITOR AND TITRATED FIO2 TOLERATED
[2021-06-02] MEDS: ENOXAPARIN 40 MG/0.4 ML SYR SUBQ SCH ×2 (09:00→11:13)
[2021-06-02] MEDS: lisinopriL 20 MG TAB PO SCH (09:00)
--- NOTE | 2021-06-02 09:10 | NUR ---
RECEIVED REPORT FROM DAY SHIFT NURSE CYDNEY FOR CONTINUITY OF CARE. PT IS AWAKE AND ALERT. A&OX4. ON HIGH FLOW NASAL CANNULA WITH O2 SAT AT 89%. VS ARE STABLE. SKIN IS WARM, DRY, AND INTACT. PT IS AMBULATORY INDEPENDENTLY. PT IS CONTINENT OF THE BOWEL AND BLADDER. PT IS STABLE. PICC LINE WILL BE PLACED SHORTLY, CHARGE NURSE CALLED PICC LINE SERVICE AND THEY WILL BE HERE IN AN HOUR. WILL CONTINUE TO MONITOR.
--- NOTE | 2021-06-02 09:15 | NUR ---
NURSE NOTES REPORT GIVEN TO OTHER DAY SHIFT NURSE BRITNEY TO ASSUME CARE. SBAR GIVEN. ALL QUESTIONS ANSWERED. CONSENT SIGNED FOR PICC LINE BY THIS NURSE AND PATIENT AND THEN BRITNEY ASSUMED CARE OF PATIENT.
[2021-06-02] MEDS: VITAMIN D 400 IU TAB PO SCH (09:25)
[2021-06-02] MEDS: ACETAMINOPHEN 325 MG TAB PO PRN ×2 (09:25→18:38)
[2021-06-02] MEDS: ASCORBIC ACID 500 MG TAB PO SCH (09:25)
[2021-06-02] MEDS: ZINC SULF 220 MG CAP PO SCH ×2 (09:25→21:52)
--- NOTE | 2021-06-02 09:25 | NUR ---
PT WAS GIVEN TYLENOL HE WAS STATING HE HAD A HEADACHE. WILL MONITOR FOR HEADACHE.
[2021-06-02] MEDS: hydroCHLOROthiazide 25 MG TAB PO SCH (09:28)
--- NOTE | 2021-06-02 09:30 | NUR ---
IS OUTSIDE THE WINDOW VISITING PT. DECLAN RN DISCUSSED PLAN OF CARE WITH SPOUSE AND ALL QUESTIONS WERE ANSWERED. PT IS STABLE AT THIS TIME ON HIGH FLOW NASAL CANNULA 100% FIO2 AND FLOW RATE 35. O2 SAT IS 95%. WILL CONTINUE TO MONITOR PT.
[2021-06-02] MEDS: PANTOPRAZOLE 40 MG TABEC PO SCH (09:37)
--- NOTE | 2021-06-02 10:28 | NUR ---
TOLERATING VAPOTHERM HIGH FLOW NASAL CANNULA WELL WITHOUT EVIDENCE OF PULMONARY DISTRESS NOTED BED FLAT PATIENT POSITION ON RIGHT SIDE GOOD CHEST RISE AIRWAY PATENT PLACED OXIMETER PROBE ON LEFT EAR SATURATION 99% HR 98
--- NOTE | 2021-06-02 11:14 | NUR ---
LOVENOX SUBQ GIVEN LATE IN ORDER TO WAIT FOR PICC LINE PLACEMENT FIRST DUE TO THE RISK FOR BLEEDING. PICC LINE NURSE JUST PLACED PICC LINE IN THE LEFT UPPER ARM. CHEST XRAY WAS TAKEN AND BRENT, PICC LINE NURSE, CONFIRMED PLACEMENT. PICC LINE IS PATENT AND FLUSHING WELL. PT TOLERATED THE PROCEDURE WELL. DENIES ANY PAIN OR DISTRESS AT THIS TIME. ON HIGH FLOW NASAL CANNULA WITH FIO2 100%. O2 SAT IS 91%. WILL CONTINUE TO MONITOR.
--- NOTE | 2021-06-02 11:25 | NUR ---
PT WAS TRANSFERRED TO ROOM 113 REQUESTED BY PT AND OUTSIDE THE WINDOW. PT TOLERATED THE ROOM CHANGE WELL. O2 SAT AT 100% AFTER BEING SET UP IN NEW ROOM. RT AT BEDSIDE, PILY, ASSESSING PT AND TRANSITIONING FROM NRB BACK TO HIGH FLOW NC. DECLAN RN AT BEDSIDE WELL ASSISTING PATIENT. ALL BELONGINGS WERE MOVED TO NEW ROOM. PT DENIES ANY DISTRESS AT THIS TIME. NEW LINENS PROVIDED FOR COMFORT. WILL CONTINUE TO MONITOR PT.
--- NOTE | 2021-06-02 11:25 | NUR ---
PATIENT TRANSFERRED TO [place] [id number] PLACED ON SUPPLEMENTAL OXYGEN AT 15 LPM VIA NON REBREATHER TOLERATED TRANSFER WELL WITHOUT COMPLICATIONS NOTED SATURATION 98% HR 101 RR 20
--- NOTE | 2021-06-02 11:29 | NUR ---
PLACED BACK OM A VAPOTHERM NASAL CANNULA WITH SETTINGS NOTED PLUGGED INTO RED OUTLET TOLERATING WELL WITHOUT COMPLICATIONS NOTED Addendum: 06/02/21 at 1150 by Aaron Saini RT COMPRESSOR ON AND FUNCTIONING WELL OM = ON
--- NOTE | 2021-06-02 11:30 | NUR ---
ASLEEP EASILY AWAKENS BED FLAT PATIENT ON RIGHT SIDE GOOD CHEST RISE AND AERATION THROUGHOUT BILATERAL LUNG BAIN AIRWAY PATENT BREATH SOUNDS DECREASED BILATERAL NO EVIDENCE OF WHEEZE RALES OR RHONCHI SATURATION 100% ON FIO2 OF 100% TITRATED FIO2 TO 90% HELIO/RN NOTIFIED
--- NOTE | 2021-06-02 11:50 | NUR ---
MESSAGED DR. SOTO INFORMING HIM THAT THE PICC LINE WAS PLACED AND CXR WAS TAKEN. PICC LINE VERIFIED PLACEMENT. ASKING IF DOCTOR CAN VERIFY PLACEMENT AND PLACE ORDER OKAY TO USE PICC LINE.
--- NOTE | 2021-06-02 11:56 | NUR ---
DR. SOTO MESSAGED BACK THAT PICC LINE IS OKAY TO USE.
[2021-06-02 12:00] VITALS: BP 92/51
--- NOTE | 2021-06-02 13:30 | NUR ---
PT IS AWAKE AND SITTING UP IN BED. NO DISTRESS NOTED ON HIGH FLOW NASAL CANNULA. BREATHING IS UNLABORED. PT HAS CELL PHONE AT BEDSIDE WITH IPAD AND BOOK. URINAL WAS EMPTIED. PT WAS GIVEN WATER REQUESTED.
--- NOTE | 2021-06-02 14:27 | NUR ---
06/02/21 RD INITIAL ASSESSMENT COMPLETED PLEASE REFER TO NUTRITION ASSESSMENT UNDER CARE ACTIVITY FOR ESTIMATED NUTRITIONAL NEEDS. 1.CONTINUE CARDIAC DIET TOLERATED 2.ENCOURAGE PO INTAKE >75% 3.[facility] WILL PROVIDE SNACKS FOR PT 4.RD TO FOLLOW-UP 2-3 DAYS, HIGH RISK REVIEWED BY FELTON [address]
--- NOTE | 2021-06-02 15:30 | NUR ---
PT WAS ASSISTED TO THE BEDSIDE COMMODE REQUESTED. PT'S GAIT WAS STEADY. O2 SAT IS 99% ON HIGH FLOW NASAL CANNULA. NO DISTRESS NOTED AT THIS TIME. PT IS STABLE.
[2021-06-02] MEDS ORDERED: ENOXAPARIN 60 MG/0.6 ML SYR SUBQ SCH (15:40)
[2021-06-02 16:00] VITALS: BP 111/63
--- NOTE | 2021-06-02 16:54 | NUR ---
RECEIVED A CALL FROM PHARMACIST REGARDING LOVENOX ORDERED. PHARMACIST IS SUGGESTING TO INCREASE THE DOSE FROM 55 MG LOVENOX BID TO 120 MG LOVENOX BID. SHE EXPLAINED THIS WOULD MAKE THE DOSAGE 1MG/KG PER DOSE. MESSAGED DR. SOTO AND INFORMED HIM ABOUT THIS SUGGESTION. HE STATED TO MESSAGE THE [employer] WHO ORDERED IT. CALLED DR. WADE AND LEFT A MESSAGE ON THE VOICEMAIL TO CALL BACK REGARDING ORDERS FOR PT IN 113A. WILL WAIT FOR RESPONSE BACK.
--- NOTE | 2021-06-02 17:28 | NUR ---
LOC AWAKE AND ALERT VERBALLY RESPONSIVE SFW POSITION SKIN TONE PINK EQUAL CHEST RISE BREATH SOUNDS DECREASED BILATERAL WITH GOOD AERATION THROUGHOUT BILATERAL LUNG BAIN NO EVIDENCE OF RALES RHONCHI OR WHEEZE BILATERAL AIRWAY PATENT TOLERATING HIGH FLOW NASAL CANNULA WELL WITHOUT ANY COMPLICATIONS NOTED SATURATION 94% WITH READING TAKEN WITH PULSE OXIMETER PROBE AT LEFT EAR LOBE HR 85 RR 20 BPM CLIENT SOLUTIONS MANAGER TO MONITOR AND TITRATE FIO2 TOLERATED
[2021-06-02] MEDS: LEVOFLOXACIN 750 MG/D5W PREMIX 150 ML IV SCH (17:35)
--- NOTE | 2021-06-02 17:35 | NUR ---
SKIN IS WARM AND DRY. BREATHING IS UNLABORED. NO RESPIRATORY DISTRESS NOTED. O2 SAT IS 100%. PT IS AWAKE AND RESPONDING APPROPRIATELY. WILL CONTINUE TO MONITOR.
--- NOTE | 2021-06-02 18:38 | NUR ---
PT COMPLAINING OF 3/10 PAIN. GAVE TYLENOL PER MD ORDER PRN. WILL ASSESS IN 1 HOUR.
--- NOTE | 2021-06-02 19:15 | NUR ---
RECEIVED REPORT FROM HELIO RITCHIE FOR CONTINUITY OF CARE. PT SITTING UP AAOX4. NO APPARENT S/S OF ACUTE DISTRESS. BREATHING EVEN AND UNLABORED ON HI-FLOW 40L/90% WITH O2 SAT OF 100%. NO C/O SP, SOB OR PAIN. L UA DL PICC INTACT/PATENT WITH NS@100ML/HR. POC AND WHITE COMMUNICATION BOARD UPDATED. BED IN LOW/LOCKED POSITION. CALL LIGHT WITHIN REACH. PT ENCOURAGED TO CALL FOR ANY NEEDS/ASSISTANCE. WILL CONTINUE TO MONITOR.
--- NOTE | 2021-06-02 19:15 | NUR ---
ENDORSED PT TO IMPROVEMENT NURSE NURSE FOR CONTINUITY OF CARE. PT IS AWAKE AND ALERT, TALKING ON THE PHONE. BREATHING IS UNLABORED ON HIGH FLOW NASAL CANNULA FIO2 90% AND FLOW RATE 40L. PT IS STABLE. PLAN OF CARE DISCUSSED.
[2021-06-02 20:00] VITALS: BP 109/66
[2021-06-02] MEDS: ENOXAPARIN 120 MG/0.8 ML SYR SUBQ SCH (21:00)
[2021-06-02] MEDS: DEXAMETHASONE 4 MG/ML VIAL IVP SCH (21:52)
[2021-06-03] VITALS: BP 113/61
[2021-06-03 04:00] VITALS: BP 97/61
[2021-06-03] MEDS: NACL 0.9% 1,000 ML IV SCH ×2 (06:25→12:29)
--- NOTE | 2021-06-03 06:58 | NUR ---
REPORT GIVEN TO CAROLINE RN FOR CONTINUITY OF CARE. PT SITTING UP AAOX4. NO APPARENT S/S OF ACUTE DISTRESS. BREATHING EVEN AND UNLABORED. BED IN LOW/LOCKED POSITION. CALL LIGHT WITHIN REACH. ALL NEEDS MET AT THIS TIME.
--- NOTE | 2021-06-03 07:00 | NUR ---
RECEIVED PATIENT FROM MOLDING FITTER NURSE FOR CONTINUITY OF CARE. PATIENT IS ON TELE MONITOR. A/A/O X4. RESPIRATORY EVEN AND UNLABORED, ON HIGH FLOW NC @ 40L/85%. NO SIGN OF DISTRESS AT THIS TIME. SKIN WARM, DRY, NON DIAPHORETIC. PICC DOUBLE LUMENS NOTED ON LEFT UPPER ARM, INTACT AND PATENT, IS INFUSING FLUID ORDER. PATIENT DENIES ANY PAIN, SOB, OR ANY DISCOMFORT. ABLE TO MAKE NEED KNOWN. PLAN OF CARE DISCUSSED, PATIENT VERBALIZED UNDERSTANDING. PRECAUTION IN PLACE. CALL LIGHT WITHIN REACH. WILL CONTINUE TO MONITOR.
[2021-06-03 08:00] VITALS: BP 117/75
[2021-06-03] MEDS: ASCORBIC ACID 500 MG TAB PO SCH (09:08)
[2021-06-03] MEDS: PANTOPRAZOLE 40 MG TABEC PO SCH (09:08)
[2021-06-03] MEDS: lisinopriL 20 MG TAB PO SCH (09:08)
[2021-06-03] MEDS: ZINC SULF 220 MG CAP PO SCH ×2 (09:09→21:00)
[2021-06-03] MEDS: VITAMIN D 400 IU TAB PO SCH (09:09)
[2021-06-03] MEDS: hydroCHLOROthiazide 25 MG TAB PO SCH (09:10)
[2021-06-03] MEDS: DEXAMETHASONE 4 MG/ML VIAL IVP SCH ×2 (09:10→21:00)
--- NOTE | 2021-06-03 09:10 | NUR ---
SCHEDULE MEDICATIONS GIVEN WITH EDUCATION, PATIENT VERBALIZED UNDERSTANDING. PATIENT TOLERATED WELL, NO SIGN OF DISTRESS NOTED. PRECAUTION IN PLACE. CALL LIGHT WITHIN REACH. WILL CONTINUE TO MONITOR.
[2021-06-03] MEDS: ACETAMINOPHEN 325 MG TAB PO PRN (09:11)
[2021-06-03] MEDS: ENOXAPARIN 120 MG/0.8 ML SYR SUBQ SCH ×2 (09:12→21:00)
[2021-06-03 09:33] LABS: BASOPHILS % (AUTO) 0.2 % (0.0-2.0); HEMATOCRIT 40.9 % (36-52); HEMOGLOBIN 13.7 g/dL (12.0-18.0); LYMPHOCYTES # (AUTO) 0.5 K/uL (2.0-11.5); LYMPHOCYTES % (AUTO) 3.5 % (20.5-51.1); MEAN CORPUSCULAR HEMOGLOBIN 30 pg (27-31); MEAN CORPUSCULAR HGB CONC 34 g/dL (33-37); MEAN CORPUSCULAR VOLUME 89.5 fL (80-94); MONOCYTES # (AUTO) 0.2 K/uL (0.8-1.0); MONOCYTES % (AUTO) 1.4 % (1.7-9.3); NEUTROPHILS # (AUTO) 13.9 K/uL (1.8-7.7); NEUTROPHILS % (AUTO) 94.9 % (42.2-75.2); PLATELET COUNT (AUTO) 306 K/uL (140-450); RED BLOOD CELL COUNT(AUTO) 4.57 MIL/uL (4.20-6.10); RED CELL DISTRIBUTION WIDTH 13.6 % (11.6-13.7); WHITE BLOOD COUNT (AUTO) 14.7 K/uL (4.8-10.8)
[2021-06-03 09:37] LABS: ANION GAP 18.1 (8-16); CARBON DIOXIDE 22.5 mmol/L (21-32); CREATININE 1.3 mg/dL (0.6-1.3); POTASSIUM 4.6 mmol/L (3.5-5.1)
--- NOTE | 2021-06-03 11:00 | NUR ---
ROUND CHECK. PATIENT IS USING PHONE, NO SIGN OF DISTRESS NOTED. PRECAUTION IN PLACE. CALL LIGHT WITHIN REACH. WILL CONTINUE TO MONITOR.
[2021-06-03 12:00] VITALS: BP 124/71
--- NOTE | 2021-06-03 13:00 | NUR ---
ROUND CHECK. PATIENT IS RESTING IN BED, NO SIGN OF DISTRESS NOTED, O2 SAT 100%. PRECAUTION IN PLACE. CALL LIGHT WITHIN REACH. WILL CONTINUE TO MONITOR.
[2021-06-03] MEDS: LEVOFLOXACIN 750 MG/D5W PREMIX 150 ML IV SCH (16:30)
--- NOTE | 2021-06-03 19:17 | NUR ---
PT SEEN AND ASSESSED. FOUND PT ON HFNC 25L AND 65% WITH SPO2 IN 80s%. TITRATED HFNC TO 30L 70% WITH SPO2 92%. PT IS IN NO RESPIRATORY DISTRESS. WILL CONTINUE TO MONITOR PT.
[2021-06-03 20:00] VITALS: BP 103/61
--- NOTE | 2021-06-03 20:00 | NUR ---
PATIENT WAS RECEIVED AWAKE AND ALERT ON HIGH FLOW VIA NC AT 40 LPM BREATHING FINE WITH EPISODES OF ANXIETY.
--- NOTE | 2021-06-03 21:00 | NUR ---
ALL DUE MEDS WERE GIVEN BY MOUTH, TOLERATED WELL BY THE PATIENT,
--- NOTE | 2021-06-03 22:00 | NUR ---
PATIENT C/O OF IV PUMP PERLA, RN ATTENDED TO FIX HE PUMP, HYDRATION INFUSION NSS WELL AT 100 ML/HOUR.
[2021-06-04] VITALS (7 sets, daily range): BP systolic 103–146; BP diastolic 61–81
--- NOTE | 2021-06-04 | NUR ---
CALLED ON THE PHONE RN GAVE UPDATES REGARDING PATIENT'S CONDITION, PATIENT WAS COMPLAINING OF MILD HEADACHE WELL, MEDICATED WITH TYLENOL 650 MG BY MOUTH. TOLERATED WELL, REQUESTED ICE WATER, RN SERVED A PITCHER OF ICE WATER. PATIENT CONTINUE TO HYDRATE HIMSELF ORALLY WITH WATER, RN TO CONTINUE MONITORING PATIENT'S DEVELOPMENT TO RECOVERY.
[2021-06-04] MEDS: ACETAMINOPHEN 325 MG TAB PO PRN ×4 (00:42→21:30)
[2021-06-04] MEDS: NACL 0.9% 1,000 ML IV SCH ×3 (02:25→21:00)
--- NOTE | 2021-06-04 03:23 | NUR ---
PATIENT REQUESTED TO BE DISCONNECTED FROM IV HYDRATION TO GO THE THE BATHROOM, ABLE TO DO NUMBER 2.
--- NOTE | 2021-06-04 07:09 | NUR ---
RECEIVED REPORT FROM PEER SUPPORT SPECIALIST NURSE. PT STABLE. NO S/S OF DISTRESS. BREATHING SYMMETRICAL.IV FLUIDS RUNNING PER MD ORDER. CALL LIGHT IN REACH. ALL SAFETY MEASURES IN PLACE.
--- NOTE | 2021-06-04 07:24 | NUR ---
ALL REPORT IS GIVEN, TRANSFER OF CARE ENDORSED.
--- NOTE | 2021-06-04 08:34 | NUR ---
SPOKE TO PT SPOUSE (WILTON) [phone]. STATED WORRY OVER PT NOT ANSWERING CELLPHONE. PT WAS RESTING IN BED WITH EYES CLOSED. PT INFORMED OF WILTON'S ATTEMPTS TO CALL.
[2021-06-04] MEDS: ENOXAPARIN 120 MG/0.8 ML SYR SUBQ SCH ×2 (09:29→21:00)
[2021-06-04] MEDS: ASCORBIC ACID 500 MG TAB PO SCH (09:29)
[2021-06-04] MEDS: PANTOPRAZOLE 40 MG TABEC PO SCH (09:29)
[2021-06-04] MEDS: lisinopriL 20 MG TAB PO SCH (09:29)
[2021-06-04] MEDS: VITAMIN D 400 IU TAB PO SCH (09:29)
[2021-06-04] MEDS: DEXAMETHASONE 4 MG/ML VIAL IVP SCH ×2 (09:29→21:00)
[2021-06-04] MEDS: ZINC SULF 220 MG CAP PO SCH ×2 (09:29→21:00)
[2021-06-04] MEDS: hydroCHLOROthiazide 25 MG TAB PO SCH (09:29)
--- NOTE | 2021-06-04 09:36 | NUR ---
PT RESTING IN BED. BREAKFAST TRAY AT BEDSIDE. MEDICATED PER MD ORDER. EDUCATED ON MEDICATIONS GIVEN. PT VERBALIZED UNDERSTANDING. PATIENT REPORTED PAIN 10/22. INSTRUCTED PT ON BREATHING TECHNIQUES AND WILL RETURN TO MEDICATE PER MD ORDER. CALL LIGHT IN REACH. ALL SAFETY MEASURES IN PLACE.
--- NOTE | 2021-06-04 11:44 | NUR ---
CHANGED PT GOWN AND LINENS. ASSISTED TO COMMODE AND PT CLEANED. ORAL CARE GIVEN. PT RETURNED TO BED. CALL LIGHT IN REACH. NO S/S OF DISTRESS. ALL SAFETY MEASURES IN PLACE Addendum: 06/04/21 at 1146 by Marlon Wright RN RN PROVIDED PT A BELONGINGS BAG. 2 BOOKS, 2 CHARGERS, AND 1 IPAD IN BELONGINGS BAG.
--- NOTE | 2021-06-04 13:48 | NUR ---
PT RESTING IN BED. NO S/S OF DISTRESS. BREATHING SYMMETRICAL. CALL LIGHT IN REACH. IV FLUIDS RUNNING PER MD ORDER. PATIENT GIVEN NEW SOCKS. EDUCATED PT ON USE OF SLIP-RESISTANT SOCKS TO PREVENT FALLS. ALL SAFETY MEASURES IN PLACE.
[2021-06-04] MEDS ORDERED: MISC INJECTION IV SCH (14:10)
--- NOTE | 2021-06-04 14:21 | NUR ---
PT IV NOT FLUSHING. NOTIFIED MD ABOUT IV PATENCY. AWAITING ORDERS ON SUGGESTED CATHFLO TO REMOVE BLOCKAGE.
--- NOTE | 2021-06-04 14:32 | NUR ---
MD ORDER FOR TRANSFER TO ICU TO RECEIVE MEDICATION. PT NOTIFIED ABOUT PLAN.
--- NOTE | 2021-06-04 14:37 | NUR ---
06/04/21 RD FOLLOW UP COMPLETED PLEASE REFER TO NUTRITION ASSESSMENT UNDER CARE ACTIVITY FOR ESTIMATED NUTRITIONAL NEEDS. 1. CONTINUE CARDIAC DIET TOLERATED 2. ENCOURAGED PO INTAKE >75% 3. [facility] WILL PROVIDE SNACKS 4. HONOR FOOD PREFERENCES/ALLOW FOOD BROUGHT FROM HOME 5. RD TO FOLLOW-UP 2-3 DAYS, HIGH RISK FELTON BINGHAM, RD
[2021-06-04] MEDS: LEVOFLOXACIN 750 MG/D5W PREMIX 150 ML IV SCH (16:17)
--- NOTE | 2021-06-04 16:18 | NUR ---
PATIENT STATED PAIN 10/22. INSTRUCTED PT ON BREATHING TECHNIQUES AND MEDICATED PER MD ORDER. EDUCATED ON MEDICATION GIVE. PT VERBALIZED UNDERSTANDING. CALL LIGHT IN REACH. ALL SAFETY MEASURES IN PLACE. WILL REASSESS
--- NOTE | 2021-06-04 16:52 | NUR ---
SPOKE TO PT AND SPOUSE ABOUT TRANSFER PLANS. WILL UPDATE POSSIBLE. CALL LIGHT IN REACH. ALL SAFETY MEASURES IN PLACE.
--- NOTE | 2021-06-04 18:06 | NUR ---
SPOKE TO PT AND SPOUSE ABOUT UPDATE FOR ICU TRANSFER. EDUCATED PT ON MEDICATION THAT WILL BE GIVEN AND REASON FOR ICU MONITORING. PT AND SPOUSE VERBALIZED UNDERSTANDING. PT RESTING IN BED. PT STABLE. NO S/S OF DISTRESS. BREATHING SYMMETRICAL. CALL LIGHT IN REACH. ALL SAFETY MEASURES IN PLACE. IV FLUIDS RUNNING PER MD ORDER.
--- NOTE | 2021-06-04 19:04 | NUR ---
PT TRANSFERRED TO ICU BED 3 FOR MEDICATION ADMINISTRATION AND MONITORING. PT STABLE. NO S/S OF DISTRESS. ENDORSED PT TO ED NURSE. MEDICAL CHART AND PERSONAL BELONGINGS TRANSPORTED WITH PT.
[2021-06-04] MEDS ORDERED: methylPREDNISolone SS 40 MG/ML VIAL IV SCH (19:30)
[2021-06-04] MEDS ORDERED: diphenhydrAMINE 50 MG/ML VIAL IVP SCH (19:30)
[2021-06-04] MEDS ORDERED: ACETAMINOPHEN 325 MG TAB PO SCH (19:30)
[2021-06-04] MEDS ORDERED: MISC INJECTION 1 EA in NACL 0.9% 100 ML IV SCH (20:00)
[2021-06-05] VITALS (18 sets, daily range): BP systolic 93–132; BP diastolic 16–85
--- NOTE | 2021-06-05 01:52 | NUR ---
PATIENT AWAKE ALERT HAS HIGH FLOW ON 30 LITERS FI02 50 % SAT95%. LUNG DIMINISH ON MONITOR SINUS PATIENT RECEIVED SOLUMEDROL 40 MG, BENADRYL 25 MG IVP, TYLENOL 650 MG. PATIENT HAS A LEFT PICC LINE START MONOCLO- NAL ANTIBODIES 30 MIN AFTER GIVEN HIS MEDICATIONS. ALSO INFUSING N.S AT 100 HOUR. TEMP 98.4 CHEST X-RAY DONE NEG. AND RENALULTRASOUND NEG. PATIENT ON CARDIAC DIET NO SIGNS OF ACUTE DISTRESS.
[2021-06-05 06:19] LABS: ALBUMIN 2.8 g/dL (3.4-5.0); ANION GAP 12.7 (8-16); CARBON DIOXIDE 23.6 mmol/L (21-32); CREATININE 1.3 mg/dL (0.6-1.3); MAGNESIUM 1.9 mg/dL (1.8-2.4); PHOSPHORUS 3.5 mg/dL (2.5-4.9); POTASSIUM 4.3 mmol/L (3.5-5.1); TOTAL BILIRUBIN 0.7 mg/dL (0.0-1.0)
[2021-06-05 06:27] LABS: BASOPHILS # (AUTO) 0.1 K/uL (0.00-0.22); BASOPHILS % (AUTO) 0.8 % (0.0-2.0); HEMATOCRIT 41.4 % (36-52); LYMPHOCYTES # (AUTO) 0.5 K/uL (2.0-11.5); LYMPHOCYTES % (AUTO) 3.2 % (20.5-51.1); MEAN CORPUSCULAR HEMOGLOBIN 30 pg (27-31); MEAN CORPUSCULAR HGB CONC 34 g/dL (33-37); MEAN CORPUSCULAR VOLUME 89.8 fL (80-94); MONOCYTES # (AUTO) 0.3 K/uL (0.8-1.0); MONOCYTES % (AUTO) 1.9 % (1.7-9.3); NEUTROPHILS # (AUTO) 15.3 K/uL (1.8-7.7); NEUTROPHILS % (AUTO) 94.1 % (42.2-75.2); PLATELET COUNT (AUTO) 278 K/uL (140-450); RED BLOOD CELL COUNT(AUTO) 4.61 MIL/uL (4.20-6.10); RED CELL DISTRIBUTION WIDTH 13.9 % (11.6-13.7)
[2021-06-05 07:14] LABS: WHITE BLOOD COUNT (AUTO) 16.2 K/uL (4.8-10.8)
--- NOTE | 2021-06-05 07:25 | NUR ---
RECEIVED REPORT FROM TRACK LAYING EQUIPMENT OPERATOR NURSE. PT IS IN BED REST. LEFT PICC CENTRAL CATH 2 LUMEN. NS 0.9% AT 100 ML/HR. NC AT HIGH FLOW AT 40 L/MIN, FIO2 45% 36* C. CARDIAC DIET. 400 ML URINE OUT PUT. COVID POSITIVE. SKIN INTACT. CALL LIGHT WITHIN REACH, BED AT LOWEST SETTING AND KELSEY PER PROTOCOL. WILL CONTINUE TO MONITOR.
--- NOTE | 2021-06-05 07:58 | NUR ---
MD RAMON AT BEDSIDE. DECREASED FIO2 TO 35%. PT ASLEEP. NO SOB OR DISTRESS NOTED. WILL CONTINUE TO MONITOR.
[2021-06-05] MEDS: ENOXAPARIN 120 MG/0.8 ML SYR SUBQ SCH ×2 (08:21→20:46)
[2021-06-05] MEDS: DEXAMETHASONE 4 MG/ML VIAL IVP SCH ×2 (08:23→20:48)
[2021-06-05] MEDS: hydroCHLOROthiazide 25 MG TAB PO SCH (08:25)
[2021-06-05] MEDS: NACL 0.9% 1,000 ML IV SCH ×2 (08:25→18:25)
[2021-06-05] MEDS: ZINC SULF 220 MG CAP PO SCH ×2 (08:26→21:08)
[2021-06-05] MEDS: VITAMIN D 400 IU TAB PO SCH (08:26)
[2021-06-05] MEDS: PANTOPRAZOLE 40 MG TABEC PO SCH (08:26)
[2021-06-05] MEDS: lisinopriL 20 MG TAB PO SCH (08:27)
[2021-06-05] MEDS: ASCORBIC ACID 500 MG TAB PO SCH (08:27)
[2021-06-05] MEDS: LEVOFLOXACIN 750 MG/D5W PREMIX 150 ML IV SCH (16:00)
--- NOTE | 2021-06-05 19:35 | NUR ---
RECEIVED BEDSIDE REPORT FROM RN DAYSHIFT NURSE FOR CONTINUITY OF CARE. PT LYING IN BED WITH HI FLOW NASAL CANNULA RECENTLY INCREASED TO 100% DUE TO PT DESATURATING WHEN HE TURNED FORM HIS SIDE. PT SATURATION DID INCREASE RT AWARE WITH PLAN TO WEAN PT BACK DOWN TO 60% WHERE PT RATE OF HIGH FLOW BEFORE THE EPISODE OF DESATURATION. PT IS AOX4 HE HAS NO C/O OF PAIN OR DISTRESS AT THIS TIME. HE HAS A LEFT UPPER ARM PICC LINE RUNNING NORMAL SALINE AT 100MLS/HR. ALL UNIVERSAL FALLS PRECAUTIONS IN PLACE.
--- NOTE | 2021-06-05 19:35 | NUR ---
ENDORSED CARE TO TEMPERATURE REGULATOR NURSE FOR CONTINUITY OF CARE.
--- NOTE | 2021-06-05 21:00 | NUR ---
PT GIVEN SCHEDULED MEDICATION OF ZINC SULFATE CAPSULE, IVP DECADRON AND LOVENOX SQ SHOT. ORDERED. EXPLAINED MEDICATIONS AND ITS PURPOSE TO PT, WHO ACKNOWLEDGED UNDERSTANDING. PT DENIES ANY PAIN OR DISTRESS NOTED. V/S FOLLOWS: T 98.5 P 75 R 20 B/P 128/69 02 100% ON 100% HI FLOW N/C. ALL UNIVERSAL PRECAUTIONS IN PLACE.
--- NOTE | 2021-06-05 22:00 | NUR ---
PT IN BED RESTING HE CONTINUES ON HI FLOW N/C, NO S/S OF PAIN OR DISTRESS NOTED NEW BAG OF NORMAL SALINE HUNG. ALL ORDERED PRECAUTIONS IN PLACE.
--- NOTE | 2021-06-05 22:45 | NUR ---
SPOKE WITH SUSHMA AND UPDATED HER AND PT STATUS, SHE WAS MADE AWARE OF PT TRANSFER TO [facility].
--- NOTE | 2021-06-05 23:02 | NUR ---
REPORT GIVEN TO MELISSA RITCHIE AT [facility] PT GOING TO ROOM 116.
--- NOTE | 2021-06-05 23:30 | NUR ---
PT TRANSFERRED TO [facility] ROOM 116 WITH ALL BELONGINGS IN HAND.
--- NOTE | 2021-06-05 23:40 | NUR ---
RECEIVED TRANSFER REPORT FROM ICU - SAGRARIO RITCHIE. TRANSFERRED VIA GURNEY. A&O X4, AMBULATORY. CARDIAC DIET. SKIN INTACT. IVF: NS 100ML/HR, LEFT UPPER ARM PICC DOUBLE LUMEN. PT IS COVID + PUI +, RAPID +, DROPLET ISOLATION. DX: COVID, PNEUMONIA. CC: MALAISE, SOB, FEVER. HX: HTN, GERD. NO ALLERGIES. FULL CODE. HFNC 80%. SAFETY MEASURES IN PLACE. CALL LIGHT WITHIN REACH. PT STABLE. WILL CONTINUE TO MONITOR.
--- NOTE | 2021-06-05 23:54 | NUR ---
TRANSFERRED PT FROM ICU TO TELE ON NONREBREATHER. PT REMAINED STABLE AND RECONNECTED TO [facility]
--- NOTE | 2021-06-06 00:15 | NUR ---
CALLED DR. CESAR IF POSSIBLE TO GET BENADRYL THAT WAS D/C'd FROM ICU. PT HAS STATED THAT IT HELPED HIM YESTERDAY. LEFT MESSAGE. WAITING FOR RESPONSE.
[2021-06-06] MEDS: ACETAMINOPHEN 325 MG TAB PO PRN (01:19)
--- NOTE | 2021-06-06 01:19 | NUR ---
PT IS ATTACHED TO O2 SAT MONITOR. SATTING AT 94%, ON HFNC 50%. ADMINISTERED TYLENOL. IN NEGATIVE AIR PRESSURE ROOM. 2 URINALS AT BEDSIDE. WILL CONTINUE TO MONITOR.
[2021-06-06] MEDS: NACL 0.9% 1,000 ML IV SCH ×4 (01:54→23:44)
--- NOTE | 2021-06-06 02:48 | NUR ---
PT IS ASLEEP. NO SIGNS OF DISTRESS. 02 SAT: 94%. PT STABLE. WILL CONTINUE TO MONITOR.
[2021-06-06 04:00] VITALS: BP 111/82
[2021-06-06 06:49] LABS: BASOPHILS # (AUTO) 0.1 K/uL (0.00-0.22); BASOPHILS % (AUTO) 0.7 % (0.0-2.0); EOSINOPHILS % (AUTO) 0.2 % (0.0-4.0); HEMOGLOBIN 14.1 g/dL (12.0-18.0); LYMPHOCYTES # (AUTO) 0.8 K/uL (2.0-11.5); LYMPHOCYTES % (AUTO) 5.9 % (20.5-51.1); MEAN CORPUSCULAR HEMOGLOBIN 30 pg (27-31); MEAN CORPUSCULAR HGB CONC 33 g/dL (33-37); MEAN CORPUSCULAR VOLUME 89.9 fL (80-94); MONOCYTES # (AUTO) 0.6 K/uL (0.8-1.0); MONOCYTES % (AUTO) 3.9 % (1.7-9.3); NEUTROPHILS # (AUTO) 12.7 K/uL (1.8-7.7); NEUTROPHILS % (AUTO) 89.3 % (42.2-75.2); PLATELET COUNT (AUTO) 293 K/uL (140-450); RED BLOOD CELL COUNT(AUTO) 4.68 MIL/uL (4.20-6.10); WHITE BLOOD COUNT (AUTO) 14.2 K/uL (4.8-10.8)
--- NOTE | 2021-06-06 07:30 | NUR ---
PASSED ON BEDSIDE REPORT TO AM SHIFT RN. PT STABLE.
--- NOTE | 2021-06-06 07:32 | NUR ---
RECEIVED REPORT FROM NIGHT NURSE PT IS AAOX4, ON HIGH FLOW 50% NC SATURATING AT 92-93%.BOWEL MOVEMENT ON 06/06/21, WITH LEFT CLAVICLE SURGERY, USES BEDSIDE COMMODE, WITH LEFT UA PICC WITH NS AT 100. SAFETY MEASURES IN PLACE AND CALL LIGHT WITHIN REACH.
[2021-06-06 08:00] VITALS: BP 112/70
[2021-06-06 08:13] LABS: ALBUMIN 2.7 g/dL (3.4-5.0); ANION GAP 17.8 (8-16); CARBON DIOXIDE 20.6 mmol/L (21-32); CREATININE 1.3 mg/dL (0.6-1.3); PHOSPHORUS 3.5 mg/dL (2.5-4.9); POTASSIUM 4.4 mmol/L (3.5-5.1); TOTAL BILIRUBIN 0.7 mg/dL (0.0-1.0)
[2021-06-06] MEDS: lisinopriL 20 MG TAB PO SCH (09:00)
[2021-06-06] MEDS: hydroCHLOROthiazide 25 MG TAB PO SCH (09:00)
[2021-06-06] MEDS: VITAMIN D 400 IU TAB PO SCH (09:13)
[2021-06-06] MEDS: PANTOPRAZOLE 40 MG TABEC PO SCH (09:14)
[2021-06-06] MEDS: ZINC SULF 220 MG CAP PO SCH ×2 (09:14→20:22)
[2021-06-06] MEDS: ASCORBIC ACID 500 MG TAB PO SCH (09:15)
[2021-06-06] MEDS: DEXAMETHASONE 4 MG/ML VIAL IVP SCH ×2 (09:17→20:21)
--- NOTE | 2021-06-06 09:17 | NUR ---
SCHEDULED MEDICATION GIVEN CHECK VITAL SIGNS PRIOR TO MEDICATION BP 112/70 CA 77.HELD BP MEDICATIONS. PT ON 10LITERS OXYGEN VIA NC. RT AWARE. WILL CONTINUE TO MONITOR.
[2021-06-06] MEDS: ENOXAPARIN 120 MG/0.8 ML SYR SUBQ SCH ×2 (09:18→20:26)
--- NOTE | 2021-06-06 10:00 | NUR ---
PT ON [address] ORDER.
--- NOTE | 2021-06-06 11:28 | NUR ---
06/06/21 RD FOLLOW UP COMPLETED PLEASE REFER TO NUTRITION ASSESSMENT UNDER CARE ACTIVITY FOR ESTIMATED NUTRITIONAL NEEDS. 1. CONTINUE CARDIAC DIET TOLERATED 2. ENCOURAGED PO INTAKE >75% 3. [facility] WILL PROVIDE SNACKS 4. HONOR FOOD PREFERENCES/ALLOW FOOD BROUGHT FROM HOME 5. RD TO FOLLOW-UP 2-3 DAYS, HIGH RISK OSIRIS REYNA, RD
[2021-06-06 12:00] VITALS: BP 145/101
[2021-06-06] MEDS: LEVOFLOXACIN 750 MG/D5W PREMIX 150 ML IV SCH (15:36)
--- NOTE | 2021-06-06 15:58 | NUR ---
MEDICATION DUE GIVEN PT TOLERATED WELL AND OXYGEN SATURATION AT 99% ON 10 LITERS NC OXYGEN.
[2021-06-06 16:00] VITALS: BP 111/82
--- NOTE | 2021-06-06 19:27 | NUR ---
ENDORSED TO NIGHT NURSE PT IS STABLE
[2021-06-06 20:00] VITALS: BP 104/73
--- NOTE | 2021-06-06 20:49 | NUR ---
Assumed care. A/O x 4. In no acute distress. Denies pain at this time. Vital signs have been taken, and they are stable. He is on HFNC 30/40 tolerating well and sating 100%. Fresh ice water has been provided. Bed side table cleared and cleaned. Will continue to monitor.
[2021-06-07] VITALS: BP 116/69
[2021-06-07 04:00] VITALS: BP 110/69
[2021-06-07 07:11] LABS: BASOPHILS % (AUTO) 0.1 % (0.0-2.0); EOSINOPHILS % (AUTO) 0.1 % (0.0-4.0); HEMATOCRIT 40.6 % (36-52); HEMOGLOBIN 13.8 g/dL (12.0-18.0); MEAN CORPUSCULAR HEMOGLOBIN 30 pg (27-31); MEAN CORPUSCULAR HGB CONC 34 g/dL (33-37); MEAN CORPUSCULAR VOLUME 88.7 fL (80-94); MONOCYTES # (AUTO) 0.8 K/uL (0.8-1.0); MONOCYTES % (AUTO) 6.3 % (1.7-9.3); NEUTROPHILS # (AUTO) 11.3 K/uL (1.8-7.7); PLATELET COUNT (AUTO) 379 K/uL (140-450); RED BLOOD CELL COUNT(AUTO) 4.58 MIL/uL (4.20-6.10); WHITE BLOOD COUNT (AUTO) 13.2 K/uL (4.8-10.8)
[2021-06-07 07:28] LABS: ALBUMIN 2.7 g/dL (3.4-5.0); ANION GAP 12.6 (8-16); CARBON DIOXIDE 23.9 mmol/L (21-32); CREATININE 1.2 mg/dL (0.6-1.3); MAGNESIUM 1.8 mg/dL (1.8-2.4); PHOSPHORUS 3.3 mg/dL (2.5-4.9); POTASSIUM 4.5 mmol/L (3.5-5.1); TOTAL BILIRUBIN 0.6 mg/dL (0.0-1.0)
--- NOTE | 2021-06-07 07:30 | NUR ---
RECEIVED PT AAOX4, ON HIGH BACK REST, NO SOB NOTED, NO C/O PAIN AT THIS TIME. WITH 2-LUMEN ELMER PICC LINE, ONE LUMEN IS PATENT AND HAS A GOOD BLOOD RETURN, THE OTHER LUMEN NOT GETTING A BLOOD RETURN. CHEST, DIMINISHED AIR ENTRY TO THE BASES, PT ON HIGH FLOW WITH 30 LITERS, FI02 40%, PT SATS AT 95%. ABDOMEN SOFT, BOWEL SOUNDS PRESENT.. INSTRUCTED PT TO CALL FOR ASSISTANCE, CALL LIGHT WITHIN REACH, VERBALIZED UNDERSTANDING.
--- NOTE | 2021-06-07 07:43 | NUR ---
He is in no acute distress respiratory or otherwise. Fresh ice waster has been provide. Care has been endorsed to Amber RITCHIE.
[2021-06-07 08:00] VITALS: BP 112/80
[2021-06-07 08:04] LABS: LYMPHOCYTES % (AUTO) 7.8 % (20.5-51.1); NEUTROPHILS % (AUTO) 85.7 % (42.2-75.2)
[2021-06-07] MEDS: DEXAMETHASONE 4 MG/ML VIAL IVP SCH ×2 (09:10→22:18)
[2021-06-07] MEDS: VITAMIN D 400 IU TAB PO SCH (09:11)
[2021-06-07] MEDS: hydroCHLOROthiazide 25 MG TAB PO SCH (09:11)
[2021-06-07] MEDS: ZINC SULF 220 MG CAP PO SCH ×2 (09:11→22:19)
[2021-06-07] MEDS: PANTOPRAZOLE 40 MG TABEC PO SCH (09:11)
[2021-06-07] MEDS: lisinopriL 20 MG TAB PO SCH (09:12)
[2021-06-07] MEDS: ENOXAPARIN 120 MG/0.8 ML SYR SUBQ SCH ×2 (09:13→22:23)
[2021-06-07] MEDS: ASCORBIC ACID 500 MG TAB PO SCH (09:19)
[2021-06-07] MEDS: NACL 0.9% 1,000 ML IV SCH ×2 (11:42→22:18)
[2021-06-07 12:00] VITALS: BP 134/85
--- NOTE | 2021-06-07 14:05 | NUR ---
PT RESTING. NO SOB NOTED. NO SIGNS OF PAIN AT THIS TIME.
[2021-06-07] MEDS: LEVOFLOXACIN 750 MG/D5W PREMIX 150 ML IV SCH (15:33)
[2021-06-07 16:00] VITALS: BP 125/85
--- NOTE | 2021-06-07 16:00 | NUR ---
SPOKE WITH RT (HUGO) IF HE CAN TRY TO TITRATE PT'S OXYGEN LEVEL DOWN. RT STATED HE WILL CHECK THE PT.
--- NOTE | 2021-06-07 19:25 | NUR ---
PT RESTING. NO SOB NOTED. NO COMPLAINTS MADE. ENDORSED TO NEXT SHIFT NURSE FOR CONTINUITY OF CARE.
[2021-06-07 20:00] VITALS: BP 121/87
[2021-06-07] MEDS: ACETAMINOPHEN 325 MG TAB PO PRN (22:20)
[2021-06-08] VITALS: BP 120/75
[2021-06-08 04:00] VITALS: BP 104/61
[2021-06-08] MEDS: NACL 0.9% 1,000 ML IV SCH ×2 (06:25→08:59)
[2021-06-08 07:17] LABS: BASOPHILS % (AUTO) 0.2 % (0.0-2.0); EOSINOPHILS % (AUTO) 0.1 % (0.0-4.0); HEMOGLOBIN 14.5 g/dL (12.0-18.0); LYMPHOCYTES # (AUTO) 1.4 K/uL (2.0-11.5); LYMPHOCYTES % (AUTO) 10.5 % (20.5-51.1); MEAN CORPUSCULAR HEMOGLOBIN 30 pg (27-31); MEAN CORPUSCULAR HGB CONC 34 g/dL (33-37); MEAN CORPUSCULAR VOLUME 89.6 fL (80-94); MONOCYTES # (AUTO) 0.7 K/uL (0.8-1.0); MONOCYTES % (AUTO) 5.6 % (1.7-9.3); NEUTROPHILS # (AUTO) 10.8 K/uL (1.8-7.7); NEUTROPHILS % (AUTO) 83.6 % (42.2-75.2); PLATELET COUNT (AUTO) 326 K/uL (140-450); RED BLOOD CELL COUNT(AUTO) 4.79 MIL/uL (4.20-6.10); RED CELL DISTRIBUTION WIDTH 14.1 % (11.6-13.7); WHITE BLOOD COUNT (AUTO) 12.9 K/uL (4.8-10.8)
[2021-06-08 07:39] LABS: ALBUMIN 2.9 g/dL (3.4-5.0); ANION GAP 11.7 (8-16); CARBON DIOXIDE 26.5 mmol/L (21-32); CREATININE 1.2 mg/dL (0.6-1.3); MAGNESIUM 1.9 mg/dL (1.8-2.4); PHOSPHORUS 3.9 mg/dL (2.5-4.9); POTASSIUM 5.2 mmol/L (3.5-5.1); TOTAL BILIRUBIN 0.7 mg/dL (0.0-1.0)
[2021-06-08 08:00] VITALS: BP 99/63
[2021-06-08] MEDS ORDERED: DEXAMETHASONE 4 MG/ML VIAL ONE (08:49)
[2021-06-08] MEDS: DEXAMETHASONE 4 MG/ML VIAL IVP SCH ×2 (09:00→22:01)
[2021-06-08] MEDS: VITAMIN D 400 IU TAB PO SCH (09:00)
[2021-06-08] MEDS: lisinopriL 20 MG TAB PO SCH (09:00)
[2021-06-08] MEDS: hydroCHLOROthiazide 25 MG TAB PO SCH (09:00)
[2021-06-08] MEDS: ZINC SULF 220 MG CAP PO SCH ×2 (09:01→22:01)
[2021-06-08] MEDS: ASCORBIC ACID 500 MG TAB PO SCH (09:01)
[2021-06-08] MEDS: PANTOPRAZOLE 40 MG TABEC PO SCH (09:01)
[2021-06-08] MEDS: ENOXAPARIN 40 MG/0.4 ML SYR SUBQ SCH (09:09)
[2021-06-08] MEDS: ACETAMINOPHEN 325 MG TAB PO PRN ×2 (09:26→22:20)
[2021-06-08] MEDS ORDERED: PANT40EC56 PO (10:44)
[2021-06-08] MEDS ORDERED: VITD400 PO (10:44)
[2021-06-08] MEDS ORDERED: LEVO750T51 PO (10:44)
[2021-06-08] MEDS ORDERED: ZINC220C29 PO (10:44)
[2021-06-08] MEDS ORDERED: VITC500 PO (10:44)
[2021-06-08] MEDS ORDERED: APIX2.5 PO (10:44)
[2021-06-08] MEDS ORDERED: HYDR25TA32 PO (10:44)
[2021-06-08] MEDS ORDERED: LISI20TA29 PO (10:44)
[2021-06-08 12:00] VITALS: BP 122/65
[2021-06-08 16:00] VITALS: BP 133/82
[2021-06-08] MEDS: LEVOFLOXACIN 750 MG/D5W PREMIX 150 ML IV SCH (16:13)
--- NOTE | 2021-06-08 16:13 | NUR ---
0720 AM: PATIENT IS RESTING IN BED QUIETLY. NO ADDITIONAL DISTRESS NOTED. CALL LIGHT WITHIN REACH. BED IN LOW AND LOCK POSITION. BEDSIDE COMMODE WITHIN REACH. STABLE CONDITION AT THIS TIME. WILL CONT TO MONITOR 0800 AM: EXPLAINED PLAN OF CARE AND PATIENT VERBALIZED UNDERSTANDING. NOTED PATIENT TO BE NEEDED. PATIENT IS ABLE TO TAKE CARE OF HIMSELF WITH MINIMAL ASSIST. HOWEVER, HE TENDS OR TRY TO BE DEPENDENT. ON THE HAND NOTED TO BE ALWAYS ANXIOUS ABOUT EVERY BIT PATIENT CONCERNS OR WHAT EVER THE PATIENT IS DOING IN THE ROOM. WOULD CALL THE NURSES STATION AND TELL THE NURSE WHAT TO DO. NO ADDITIONAL DISTRESS NOTED. ON 5L NC 02 SAT 98%. WILL CONT TO MONITOR. 0926AM: GAVE TYLENOL DUE TO C/O VELAZQUEZ 10/22. WILL CONT TO MONITOR. 1000AM: PATIENT RESTING IN BED QUIETLY TALKING TO HIS ON THE PHONE. WILL CONT TO MONITOR. 1200PM: PATIENT RESTING IN BED QUIETLY, EATING HIS LUNCH. WILL CONT TO MONITOR. 1400: WATCHING STUFF IN HIS PHONE. WILL CONT TO MONITOR 1600: PATIENT IS RESTING IN BED, ASLEEP (SUPINE). NO ADDITIONAL DISTRESS NOTED. WILL CONT TO MONITOR 1613: SEMIAUTOMATIC TAPER OPERATOR AT THE BEDSIDE AND TELLING THE PATIENT REGARDING THE O2 TANK WILL BE DELIVER BETWEEN 5PM-9PM. NO ADDITIONAL DISTRESS NOTED. WILL CONT TO MONITOR.
--- NOTE | 2021-06-08 18:35 | NUR ---
1800; PATIENT IS RESTING IN BED EATING HIS DINNER. NO ADDITION ADDITIONAL DISTRESS NOTED.WILL CONT TO MONITOR. 1830: NO CHANGE FROM PREVIOUS ASSESSMENT. STABLE THROUGHOUT THE SHIFT. O2 TANK NOT DELIVERED YET. PER , WHO IS ON THE PHONE WITH THE PATIENT STATED THAT SHE WILL BE HERE IN AM BETWEEN 9A TO 10AM. WILL CONT TO MONITOR
--- NOTE | 2021-06-08 19:20 | NUR ---
OXYGEN TANK DELIVERED. PLACED IN THE FRONT DOOR OF THE PATIENT ROOM. ENDORSE TO NEXT SHIFT RN.
[2021-06-08 20:00] VITALS: BP 125/87
[2021-06-09 00:03] VITALS: BP 131/79
[2021-06-09] MEDS: NACL 0.9% 1,000 ML IV SCH (00:08)
[2021-06-09 04:45] VITALS: BP 121/78
--- NOTE | 2021-06-09 06:01 | NUR ---
THE PATENT WAS ADMITTED FOR COVID PNEUMONIA. HER BREATHING IS EVEN AND UNLABORED ON 5L NC. HIS VITALS ARE STABLE . HE HAS DISCHARGE ORDER WAITING FOR HIS TO COME TO PICK HIM UP. HE SLEEPS COMFORTABLE IN HIS BED . COMFORT AND SAFETY MEASURES ARE PROVIDED.
[2021-06-09 07:44] LABS: ALBUMIN 2.9 g/dL (3.4-5.0); ANION GAP 12.6 (8-16); BASOPHILS % (AUTO) 0.3 % (0.0-2.0); CARBON DIOXIDE 24.6 mmol/L (21-32); CREATININE 1.2 mg/dL (0.6-1.3); EOSINOPHILS % (AUTO) 0.1 % (0.0-4.0); HEMATOCRIT 41.6 % (36-52); HEMOGLOBIN 14.1 g/dL (12.0-18.0); LYMPHOCYTES # (AUTO) 1.5 K/uL (2.0-11.5); LYMPHOCYTES % (AUTO) 9.5 % (20.5-51.1); MAGNESIUM 1.9 mg/dL (1.8-2.4); MEAN CORPUSCULAR HEMOGLOBIN 30 pg (27-31); MEAN CORPUSCULAR HGB CONC 34 g/dL (33-37); MEAN CORPUSCULAR VOLUME 89.3 fL (80-94); MONOCYTES # (AUTO) 0.9 K/uL (0.8-1.0); MONOCYTES % (AUTO) 5.2 % (1.7-9.3); NEUTROPHILS # (AUTO) 13.8 K/uL (1.8-7.7); NEUTROPHILS % (AUTO) 84.9 % (42.2-75.2); PHOSPHORUS 3.4 mg/dL (2.5-4.9); PLATELET COUNT (AUTO) 331 K/uL (140-450); POTASSIUM 5.2 mmol/L (3.5-5.1); RED BLOOD CELL COUNT(AUTO) 4.65 MIL/uL (4.20-6.10); RED CELL DISTRIBUTION WIDTH 13.7 % (11.6-13.7); TOTAL BILIRUBIN 0.7 mg/dL (0.0-1.0); WHITE BLOOD COUNT (AUTO) 16.2 K/uL (4.8-10.8)
[2021-06-09 08:00] VITALS: BP 133/91
[2021-06-09] MEDS: DEXAMETHASONE 4 MG/ML VIAL IVP SCH (08:56)
[2021-06-09] MEDS: VITAMIN D 400 IU TAB PO SCH (08:56)
[2021-06-09] MEDS: PANTOPRAZOLE 40 MG TABEC PO SCH (08:57)
[2021-06-09] MEDS: hydroCHLOROthiazide 25 MG TAB PO SCH (08:57)
[2021-06-09] MEDS: ACETAMINOPHEN 325 MG TAB PO PRN (08:58)
[2021-06-09] MEDS: ENOXAPARIN 40 MG/0.4 ML SYR SUBQ SCH (08:58)
[2021-06-09] MEDS: ZINC SULF 220 MG CAP PO SCH (08:58)
[2021-06-09] MEDS: lisinopriL 20 MG TAB PO SCH (08:58)
[2021-06-09] MEDS: ASCORBIC ACID 500 MG TAB PO SCH (09:21)
--- NOTE | 2021-06-09 11:00 | NUR ---
0720 AM: PATIENT IS RESTING IN BED QUIETLY. NO ADDITIONAL DISTRESS NOTED. CALL LIGHT WITHIN REACH. BED IN LOW AND LOCK POSITION. BEDSIDE COMMODE WITHIN REACH. CURRENTLY ON 4L NC 02 SAT 93% TO 95%. HOME O2 AT THE BEDSIDE. AWAITING FOR FOR ARRIVAL TO PICK HIM UP. DC HOME TODAY. ETA SIGNALING DESIGN ENGINEER AT 9A-10A. STABLE CONDITION AT THIS TIME. WILL CONT TO MONITOR 0800 AM: EXPLAINED PLAN OF CARE AND PATIENT VERBALIZED UNDERSTANDING. NOTED PATIENT TO BE NEEDED. PATIENT IS ABLE TO TAKE CARE OF HIMSELF WITH MINIMAL ASSIST. HOWEVER, HE TENDS OR TRY TO BE DEPENDENT. NO ADDITIONAL DISTRESS NOTED. WILL CONT TO MONITOR. 0830AM: REPORT TO DR MERIDA REGARDING WBC 16.2 AND HR BETWEEN 107-120. PATIENT HAS ANXIETY. NEED TO CLARIFY IF PATIENT IS CLEAR TO GO HOME TODAY. IS OUTSIDE THE FACILITY WAITING FOR THE PATIENT. 0835AM: SPOKE WITH AND MADE HER AWARE THAT DC INSTRUCTION WILL BE DONE AFTER MD CATIE MEDINA. 0858AM: GAVE TYLENOL DUE TO C/O VELAZQUEZ 10/22. NO ADDITIONAL DISTRESS NOTED. 0915AM: PATIENT TOLD PRIMARY NURSE THAT A LADY FRIEND IS HERE TO SIGNALING DESIGN ENGINEER HIS CAR KEYS. CAR KEYS WAS GIVEN TO A LADY FRIEND IN THE FRONT LOBBY. 0859AM: PER DR FUAD LUNA TO DC HOME TODAY AND DC PICC LINE. 1030AM: EXPLAINED AND GIVEN DC INSTRUCTION TO PATIENT AND HE VERBALIZED UNDERSTANDING. CURRENTLY ON 3L NC 02 SAT 93%- 95%. NO ADDITIONAL DISTRESS NOTED. PICC LINE REMOVED FROM THE ELMER. PICC LINE CATH INTACT AND PATENT. NO BLEEDING NOTED. PRESSURE APPLIED. COVER SITE WITH GAUZE AND SECURE WITH CLOTHE TAPE (TIGHTLY, BUT NOT CONSTRICTING). OUTSIDE AND WANTS TO DELIVER PATIENT OWN CLOTHES. 1035AM: STUDENT NURSE PICKED UP THE PATIENT HOME CLOTHES IN THE LOBBY. 1040AM: PATIENT IS INDEPENDENTLY DRESSING HIMSELF. TOLERATED WELL. PATIENT IS ABLE TO DO ADL ON HIS OWN BUT TRIES TO BE DEPENDABLE. PATIENT HAS STEADY GAIT WHEN WALKING AND FEEDS HIMSELF INDEPENDENTLY. NOTED PATIENT TO BE NEEDY. 1100AM: PATIENT WHEELED OUT BY MALTED MILK MIXER AND STUDENT NURSE. LEFT THE FACILITY IN A STABLE CONDITION. NO ADDITIONAL DISTRESS NOTED. PROVIDED PATIENT WITH 2 NEW URINALS AND 1 NEW IS. ALL PERSONAL BELONGINGS WAS GIVEN TO PATIENT AND DENIES MISSING ITEMS. ALL HOME 02 TANK GIVEN TO PATIENT AND .
== END 2021-06-09 10:50 | disposition home or self-care (01) | DRG 871 ==
LOC: MED 10:24 → MTU 14:28 → MIC 06-04 18:45 → MTU 06-05 23:30
PROVIDERS: ADMIT Family Medicine; ATTEND Family Medicine
PROC: XW033E5 Introduction of Remdesivir Anti-infective into Peripheral Vein, Percutaneous Approach, New Technology Group 5 (ICD-10-PCS; 2021-05-28)
PROC: 30233K1 Transfusion of Nonautologous Frozen Plasma into Peripheral Vein, Percutaneous Approach (ICD-10-PCS; 2021-06-01)
PROC: 5A0935A Assistance with Respiratory Ventilation, Less than 24 Consecutive Hours, High Flow/Velocity Cannula (ICD-10-PCS; principal; 2021-06-02)
PROC: 02HV33Z Insertion of Infusion Device into Superior Vena Cava, Percutaneous Approach (ICD-10-PCS; 2021-06-02)
PROC: B548ZZA Ultrasonography of Superior Vena Cava, Guidance (ICD-10-PCS; 2021-06-02)
PROC: 5A0935A Assistance with Respiratory Ventilation, Less than 24 Consecutive Hours, High Flow/Velocity Cannula (ICD-10-PCS; 2021-06-03)
PROC: 5A0935A Assistance with Respiratory Ventilation, Less than 24 Consecutive Hours, High Flow/Velocity Cannula (ICD-10-PCS; 2021-06-04)
PROC: 5A0935A Assistance with Respiratory Ventilation, Less than 24 Consecutive Hours, High Flow/Velocity Cannula (ICD-10-PCS; 2021-06-05)
PROC: 5A0935A Assistance with Respiratory Ventilation, Less than 24 Consecutive Hours, High Flow/Velocity Cannula (ICD-10-PCS; 2021-06-06)
DX: A41.89 Other specified sepsis (principal); U07.1 COVID-19; J12.82 Pneumonia due to coronavirus disease 2019; N17.0 Acute kidney failure with tubular necrosis; E43 Unspecified severe protein-calorie malnutrition; J96.01 Acute respiratory failure with hypoxia; E87.1 Hypo-osmolality and hyponatremia; I10 Essential (primary) hypertension; K21.9 Gastro-esophageal reflux disease without esophagitis; E83.39 Other disorders of phosphorus metabolism; K44.9 Diaphragmatic hernia without obstruction or gangrene; E86.0 Dehydration; Z79.899 Other long term (current) drug therapy; Z68.33 Body mass index [BMI] 33.0-33.9, adult; Z82.5 Family history of asthma and other chronic lower respiratory diseases; Z83.3 Family history of diabetes mellitus; Z82.3 Family history of stroke; Z82.49 Family history of ischemic heart disease and other diseases of the circulatory system
CPT/HCPCS: 36415; 36600; 71045; 71275; 76770; 80048; 80053; 80076; 80305; 81003; 82150; 82550; 82553; 82570; 82728; 82803; 82948; 83036; 83605; 83615; 83690; 83735; 83880; 83935; 84100; 84300; 84439; 84443; 84484; 85025; 85379; 85384; 85610; 85651; 85730; 86140; 86886; 86900; 86901; 87040; 87081; 87086; 87420; 87804; 93005; 96365; 96367; 96375; 99291; J0456; J0696; J1100; J1200; J1650; J1956; J2060; J2270; J2405; J2920; J7060; P9017; Q0092; Q9967; U0003